=== PATIENT | male | born 1965 | race Caucasian/White ===

== ENCOUNTER 2016-07-31 15:30 | Emergency (ER) | payer BC ==
[2016-07-31] MEDS ORDERED: EPINEPHrine 1:1000 1 MG/ML SDV IM ONE ×2 (15:32→19:04)
[2016-07-31] MEDS ORDERED: methylPREDNISolone Acetate 80 MG/ML SDV ONE (15:36)
[2016-07-31] MEDS ORDERED: diphenhydrAMINE 50 MG/ML SDV IM ONE (15:40)
[2016-07-31] MEDS ORDERED: methylPREDNISolone Acetate 80 MG/ML SDV IM ONE (15:45)
--- NOTE | 2016-07-31 15:48 | EDM.PDOC ---
ED HPI GENERAL MEDICAL PROBLEM - General Chief Complaint: Allergic Reaction Stated Complaint: RASH Time Seen by Provider: 07/31/16 15:40 Source of Information: Reports: Patient History Limitations: Reports: No Limitations - History of Present Illness INITIAL COMMENTS - FREE TEXT/NARRATIVE: Came in to the ER complaining of rash, itching and burning in throat with a tightness in throat. No wheezing. Broke out n rash about [id number] today. Did take oral Benadryl at 1445 at home. Notes that feet are itching and feel swollen and rash is just starting now. Has rash over most of chest area, some on back and in groin. Rash is slightly raised and hives under breast area. States that his chest crouch like he has heartburn. Doesn't feel SOB at this time. States has been eating strawberry/ rhubarb crisp every day since Friday and that is the only thing different. Usually has no problems with allergies or reactions to anything. No other food or meds out of the ordinary. 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 (see below) (Benadryl) Throat Pain Score (Numeric/FACES): 6 - Related Data Allergies Allergy/AdvReac Type Severity Reaction Status Date / Time iodine Allergy Hives Verified 07/31/16 15:48 Home Meds: Home Meds Chlorthalidone [Chlorthalidone] 25 mg PO DAILY 07/31/16 [History] Levothyroxine Sodium [Levothyroxine Sodium] 175 mcg PO DAILY 07/31/16 [History] Losartan [Cozaar] 100 mg PO DAILY 07/31/16 [History] Simvastatin [Simvastatin] 20 mg PO DAILY 07/31/16 [History] Venlafaxine HCl [Venlafaxine ER] 75 mg PO DAILY 07/31/16 [History] Past Medical History - Past Surgical History Head Surgeries/Procedures: Reports: Craniotomy Social & Family History - Tobacco Use Smoking Status *Q: Never Smoker - Living Situation & Occupation Living situation: Reports: , with Family ED ROS ALLERGIC REACTION - Review of Systems Review Of Systems: See Below Constitutional: Denies: Fever, Chills HEENT: Reports: No Symptoms Respiratory: Reports: Other (chest feels tight). Denies: Cough Cardiovascular: Reports: No Symptoms GI/Abdominal: Reports: Other (Burning in his chest up into throat- which relieved after getting epi.) Musculoskeletal: Reports: No Symptoms Skin: Reports: Pruritis, Rash (rash noted over anterior chest. Under arms bilaterally. up onto the neck.) Neurological: Denies: Headache, Numbness ED EXAM GENERAL NO PERIP PULSE - Physical Exam Exam: See Below Exam Limited By: No Limitations General Appearance: Alert, Mild Distress Ears: Normal External Exam, Normal Canal Nose: Normal Inspection Throat/Mouth: Normal Inspection, Normal Oropharynx, No Airway Compromise Head: Atraumatic, Normocephalic Neck: Normal Inspection, Supple, Non-Tender, Full Range of Motion Respiratory/Chest: Lungs Clear, Normal Breath Sounds, Chest Non-Tender, Other ( states the burning in his chest went completely away.) Cardiovascular: Normal Peripheral Pulses, Regular Rate, Rhythm, No Edema GI/Abdominal: Normal Bowel Sounds, Soft, Non-Tender, No Organomegaly Back Exam: Normal Inspection Extremities: Normal Inspection, Normal Range of Motion, No Pedal Edema Neurological: Alert, Oriented Skin Exam: Warm, Dry Course - Vital Signs Last Recorded V/S: Last Vital Signs Temp 97.6 F 07/31/16 19:05 Pulse 73 07/31/16 19:05 Resp 18 07/31/16 19:05 BP 132/73 07/31/16 19:42 Pulse Ox 96 07/31/16 19:05 - Orders/Labs/Meds Meds: Medications Discontinued Medications Generic Name Dose Route Start Last Admin Trade Name Freq PRN Reason Stop Dose Admin Al Hydroxide/Mg Hydroxide 30 0 ml 07/31/16 19:51 ml/ Lidocaine HCl 15 ml PO 07/31/16 19:52 ONETIME ONE Diphenhydramine HCl 50 mg 07/31/16 15:40 07/31/16 15:40 Benadryl IM 07/31/16 15:41 50 mg ONETIME ONE Administration Epinephrine HCl 0.3 mg 07/31/16 15:32 07/31/16 15:32 Adrenalin 1:1000 IM 07/31/16 15:33 0.3 mg ONETIME ONE Administration Epinephrine HCl 0.3 mg 07/31/16 19:04 07/31/16 19:08 Adrenalin 1:1000 IM 07/31/16 19:05 0.3 mg ONETIME ONE Administration Methylprednisolone Acetate Confirm 07/31/16 15:36 07/31/16 15:56 Depo-Medrol Administered 07/31/16 15:37 Not Given Dose 80 mg .ROUTE .STK-MED ONE Methylprednisolone Acetate 80 mg 07/31/16 15:45 07/31/16 15:45 Depo-Medrol IM 07/31/16 15:46 80 mg ONETIME ONE Administration Methylprednisolone Sodium Succinate 125 mg 07/31/16 19:05 07/31/16 19:12 Solu-Medrol IM 07/31/16 19:06 125 mg ONETIME ONE Administration - Re-Assessments/Exams Free Text/Narrative Re-Assessment/Exam: 07/31/16 16:43 REevaluation reveals that rash is now just a pale pink in places and no longer itches. All the burning in his throat and chest is completely relieved at this time. He states that he feels better. Will discharge to home and instructed to continue to take the benadryl and return if symptoms return. Departure - Departure Time of Disposition: 16:44 Disposition: Home, Self-Care 01 Condition: good Clinical Impression: Allergic reaction Qualifiers: Encounter type: initial encounter Qualified Code(s): T78.40XA - Allergy, unspecified, initial encounter - Discharge Information Instructions: Allergies Referrals: Matheus Rose PA-C [Primary Care Provider] - Forms: ED Department Discharge Additional Instructions: Continue using the Benadryl for the next 48 hours If you become short of breathe or tightness occurs in throat or chest then return to the ER immediately. Call if any questions or concerns noted. - Problem List & Annotations (1) Allergic reaction SNOMED Code(s): 264130395 Code(s): T78.40XA - ALLERGY, UNSPECIFIED, INITIAL ENCOUNTER Status: Acute Priority: High Qualifiers: Encounter type: initial encounter Qualified Code(s): T78.40XA - Allergy, unspecified, initial encounter - Problem List Review Problem List Initiated/Reviewed/Updated: Yes
[2016-07-31] MEDS ORDERED: methylPREDNISolone Sodium Succinate 125 MG/2 ML SDV IM ONE (19:05)
[2016-07-31 19:42] VITALS: BP 132/73
[2016-07-31] MEDS ORDERED: Alum Hydrox/Mag Hydrox/Simeth 30 ML, Lidocaine 2% 15 ML PO ONE ×2 (19:51)
--- NOTE | 2016-08-01 06:51 | PN ---
DATE: 07/31/2016 S: Mr. Pittman had been in the emergency room earlier this day, but did come back as an outpatient at about 1705 hours as his hives had returned, the burning in his chest and tightness in his throat had also returned. He was given a dose of epinephrine and also a dose of 125 mg Solu-Medrol. When I did see him, he states the rash was lightening up again as it had been bright red and it is now more of a light pink. The itching had stopped or had decreased in most areas. He still had a burning tightness in his chest that had not been completely resolved at this point, so I did do an EKG just to make sure that it was not cardiac related and that was normal. He states at this point that his throat was less tight and scratchy and that he was feeling much better, but he did still have a burning in his chest. He was then given a GI cocktail and this completely disappeared. By 2014, he was pretty much back to his baseline except he could have a very light rash which is very light pink. It was pretty much on his chest, abdomen and arms. O: HEENT: During his stay, oral mucosa was pink and moist. There was no redness. It was not inflamed. NECK: Supple. There is no lymphadenopathy. LUNGS: Clear throughout. I do not hear any wheezing. No rhonchi. HEART: S1, S2. He had no chest wall tenderness. SKIN: He did have a rash that was much like the one that was in the ER earlier that was now very light pink on the above areas. Because he has significantly improved, we are going to discharge him again. He is to continue to take his Benadryl at home as he was instructed earlier and then follow up with any new concerns. He and his both voiced understanding. ASSESSMENT: ALLERGIC REACTION TO UNKNOWN SUBSTANCE. MELYSSA/BRY /[id number]
== END 2016-07-31 16:50 | disposition home or self-care (01) ==
LOC: CC.ED 15:30
DX: T78.40XA Allergy, unspecified, initial encounter (principal); R21 Rash and other nonspecific skin eruption; Z79.899 Other long term (current) drug therapy; Z98.890 Other specified postprocedural states; Z91.041 Radiographic dye allergy status
CPT/HCPCS: 93005; 96372; 99284; A9270; J0171; J1040; J1200; J2930

== ENCOUNTER 2016-09-22 22:24 | Observation (INO) | payer BC ==
[2016-09-22] MEDS ORDERED: Dexamethasone 4 MG/ML SDV IM ONE (22:27)
[2016-09-22] MEDS ORDERED: EPINEPHrine 1 MG/ML SDV ONE (22:29)
[2016-09-22] MEDS ORDERED: Sodium Chloride 0.9% 100 ML ONE ×2 (22:32→22:41)
[2016-09-22] MEDS ORDERED: Sodium Chloride 0.9% 1,000 ML ONE (22:32)
[2016-09-22] MEDS ORDERED: diphenhydrAMINE 50 MG/ML SDV ONE (22:40)
[2016-09-22] MEDS ORDERED: hydrOXYzine HCl 25 MG Tab ONE (23:07)
[2016-09-22] MEDS ORDERED: methylPREDNISolone Sodium Succinate 125 MG/2 ML SDV IVPUSH ONE (23:34)
[2016-09-22] MEDS ORDERED: methylPREDNISolone Sodium Succinate 125 MG/2 ML SDV IVPUSH SCH (23:45)
[2016-09-22] MEDS ORDERED: EPINEPHrine 1 MG in Dextrose 5% in Water 100 ML IV SCH ×2 (23:45)
[2016-09-22] MEDS ORDERED: Sodium Chloride 0.9% 1,000 ML IV ONE (23:54)
[2016-09-22] MEDS ORDERED: diphenhydrAMINE 50 MG/ML SDV IVPUSH ONE (23:57)
[2016-09-22] MEDS ORDERED: hydrOXYzine HCl 25 MG Tab PO ONE (23:58)
[2016-09-23] MEDS ORDERED: Sodium Chloride 0.9% 100 ML IV SCH (00:15)
[2016-09-23] MEDS ORDERED: methylPREDNISolone Sodium Succinate 125 MG/2 ML SDV IVPUSH ONE (00:51)
[2016-09-23] MEDS ORDERED: Sodium Chloride 0.9% 1,000 ML IV SCH (01:00)
--- NOTE | 2016-09-23 01:21 | EDM.PDOC ---
ED HPI GENERAL MEDICAL PROBLEM - General Chief Complaint: General Stated Complaint: itchy hands Time Seen by Provider: 09/22/16 22:29 Source of Information: Reports: Patient History Limitations: Reports: No Limitations - History of Present Illness INITIAL COMMENTS - FREE TEXT/NARRATIVE: Ate some crab legs about 2 hours ago and started itching. Now his throat feels like it is closing up his tongue is getting swollen and he has turned beet red. 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: 50 MG ORAL BENADRYL TAKEN AT HOME - Related Data Allergies Allergy/AdvReac Type Severity Reaction Status Date / Time iodine Allergy Hives Verified 09/22/16 22:29 rhubarb Allergy Hives Verified 09/22/16 22:30 shellfish derived Allergy Hives Verified 09/22/16 22:29 strawberry Allergy Hives Verified 09/22/16 22:30 Home Meds: Home Meds Chlorthalidone [Chlorthalidone] 25 mg PO DAILY 07/31/16 [History] Levothyroxine Sodium [Levothyroxine Sodium] 175 mcg PO DAILY 07/31/16 [History] Losartan [Cozaar] 100 mg PO DAILY 07/31/16 [History] Simvastatin [Simvastatin] 20 mg PO DAILY 07/31/16 [History] Venlafaxine HCl [Venlafaxine ER] 75 mg PO DAILY 07/31/16 [History] Past Medical History HEENT History: Reports: Hard of Hearing Cardiovascular History: Reports: High Cholesterol, Hypertension Musculoskeletal History: Reports: Arthritis Neurological History: Reports: Cerebral Aneurysms Psychiatric History: Reports: Depression Endocrine/Metabolic History: Reports: Hypothyroidism Dermatologic History: Reports: Other (See Below) Other Dermatologic History: ANAPHALAXIS - Infectious Disease History Infectious Disease History: Reports: Shingles - Past Surgical History Head Surgeries/Procedures: Reports: Craniotomy Cardiovascular Surgical History: Reports: Other (See Below) Other Cardiovascular Surgeries/Procedures: ANGIOGRAM Male Surgical History: Reports: Vasectomy, Other (See Below) Other Male Surgeries/Procedures: BREAST TISSUE REMOVED IN LEFT BREAST Endocrine Surgical History: Reports: Other (See Below) Other Endocrine Surgeries/Procedures: PARTIAL THYROIDECTOMY Neurological Surgical History: Reports: Other (See Below) Other Neurological Surgeries/Procedures: ANEURYSM REPAIR Musculoskeletal Surgical History: Reports: Shoulder Surgery, Other (See Below) Other Musculoskeletal Surgeries/Procedures:: KNEE SURGERIES Social & Family History - Tobacco Use Smoking Status *Q: Never Smoker Second Hand Smoke Exposure: No - Caffeine Use Caffeine Use: Reports: Soda - Recreational Drug Use Recreational Drug Use: No - Living Situation & Occupation Living situation: Reports: , with Family ED ROS GENERAL - Review of Systems Review Of Systems: ROS reveals no pertinent complaints other than HPI. ED EXAM, GENERAL - Physical Exam Exam: See Below Free Text/Narrative:: When i responded to the ER the patient was in significant distress, he was bright red, HR wa 124, BP was 188/115, he was beginning to have trouble breathing due to swelling in the throat, and he was covered with hives. General Appearance: Severe Distress Throat/Mouth: No Airway Compromise Respiratory/Chest: Wheezing Skin Exam: Erythema, Increased Warmth, Rash Course - Vital Signs Last Recorded V/S: Last Vital Signs Temp 99.2 F 09/23/16 00:19 Pulse 78 09/23/16 00:19 Resp 20 09/23/16 00:19 BP 136/75 09/23/16 00:19 Pulse Ox 94 L 09/23/16 00:19 - Orders/Labs/Meds Orders: Active Orders 24 hr Category Date Time Status EPINEPHrine [Adrenalin 1:1000] 1 mg Med 09/22/16 23:45 Active Dextrose 5% in Water 100 ml IV TITRATE Sodium Chloride 0.9% [Normal Saline] 1,000 ml Med 09/22/16 23:54 Active IV .BOLUS Sodium Chloride 0.9% [Normal Saline] 100 ml Med 09/23/16 00:15 Active IV ASDIRECTED Medication Orders Sodium Chloride (Normal Saline) 1,000 mls @ 100 mls/hr IV .BOLUS ONE Stop: 09/23/16 09:53 Last Admin: 09/23/16 00:55 Dose: 100 mls/hr Epinephrine HCl 1 mg/ Dextrose (/Water) 101 mls @ 71.61 mls/hr IV TITRATE JAMIA; 0.1 MCG/KG/MIN PRN Reason: Protocol Sodium Chloride (Normal Saline) 100 mls @ 100 mls/hr IV ASDIRECTED JAMIA Sodium Chloride (Normal Saline) 1,000 mls @ 125 mls/hr IV ASDIRECTED JAMIA Meds: Medications Generic Name Dose Route Start Last Admin Trade Name Freq PRN Reason Stop Dose Admin Sodium Chloride 1,000 mls @ 100 mls/hr 09/22/16 23:54 09/23/16 00:55 Normal Saline IV 09/23/16 09:53 100 mls/hr .BOLUS ONE Administration Epinephrine HCl 1 mg/ Dextrose 101 mls @ 71.61 mls/hr 09/22/16 23:45 /Water IV TITRATE JAMIA Protocol 0.1 MCG/KG/MIN Sodium Chloride 100 mls @ 100 mls/hr 09/23/16 00:15 Normal Saline IV ASDIRECTED JAMIA Sodium Chloride 1,000 mls @ 125 mls/hr 09/23/16 01:00 Normal Saline IV ASDIRECTED JAMIA Discontinued Medications Generic Name Dose Route Start Last Admin Trade Name Freq PRN Reason Stop Dose Admin Dexamethasone 8 mg 09/22/16 22:27 09/22/16 22:33 Dexamethasone IM 09/22/16 22:28 8 mg ONETIME ONE Administration Diphenhydramine HCl Confirm 09/22/16 22:40 09/22/16 23:59 Benadryl Administered 09/22/16 22:41 Not Given Dose 50 mg .ROUTE .STK-MED ONE Diphenhydramine HCl 25 mg 09/22/16 23:57 09/23/16 00:55 Benadryl IVPUSH 09/22/16 23:58 25 mg ONETIME ONE Administration Epinephrine HCl Confirm 09/22/16 22:29 09/22/16 23:59 Adrenalin 1:1000 Administered 09/22/16 22:30 Not Given Dose 1 mg .ROUTE .STK-MED ONE Hydroxyzine HCl Confirm 09/22/16 23:07 09/22/16 23:59 Atarax Administered 09/22/16 23:08 Not Given Dose 50 mg .ROUTE .STK-MED ONE Hydroxyzine HCl 50 mg 09/22/16 23:58 09/23/16 00:55 Atarax PO 09/22/16 23:59 50 mg ONETIME ONE Administration Sodium Chloride Confirm 09/22/16 22:32 09/22/16 23:59 Normal Saline Administered 09/22/16 22:33 Not Given Dose 100 mls @ as directed .ROUTE .STK-MED ONE Sodium Chloride Confirm 09/22/16 22:32 09/22/16 23:59 Normal Saline Administered 09/22/16 22:33 Not Given Dose 1,000 mls @ as directed .ROUTE .STK-MED ONE Sodium Chloride Confirm 09/22/16 22:41 09/23/16 00:00 Normal Saline Administered 09/22/16 22:42 Not Given Dose 100 mls @ as directed .ROUTE .STK-MED ONE Methylprednisolone Sodium Succinate 125 mg 09/22/16 23:45 Solu-Medrol IVPUSH Q24H JAMIA Methylprednisolone Sodium Succinate 125 mg 09/22/16 23:34 09/23/16 00:54 Solu-Medrol IVPUSH 09/22/16 23:35 125 mg STAT ONE Administration Methylprednisolone Sodium Succinate 125 mg 09/23/16 00:51 09/23/16 00:54 Solu-Medrol IVPUSH 09/23/16 00:52 125 mg STAT ONE Administration Departure - Departure Time of Disposition: 01:19 (Will obs overnight do to severity of the allergic reaction. I feel this would have turned into anaphylaxis given much more time.) Disposition: Refer to Observation Condition: Fair Clinical Impression: Allergic reaction Qualifiers: Encounter type: initial encounter Qualified Code(s): T78.40XA - Allergy, unspecified, initial encounter - Discharge Information - My Orders Last 24 Hours: My Active Orders 09/22/16 23:45 EPINEPHrine [Adrenalin 1:1000] 1 mg Dextrose 5% in Water 100 ml IV TITRATE 09/22/16 23:54 Sodium Chloride 0.9% [Normal Saline] 1,000 ml IV .BOLUS 09/23/16 00:15 Sodium Chloride 0.9% [Normal Saline] 100 ml IV ASDIRECTED - Assessment/Plan Last 24 Hours: My Active Orders 09/22/16 23:45 EPINEPHrine [Adrenalin 1:1000] 1 mg Dextrose 5% in Water 100 ml IV TITRATE 09/22/16 23:54 Sodium Chloride 0.9% [Normal Saline] 1,000 ml IV .BOLUS 09/23/16 00:15 Sodium Chloride 0.9% [Normal Saline] 100 ml IV ASDIRECTED
[2016-09-23] MEDS: diphenhydrAMINE 25 MG Cap PO SCH ×2 (03:40→07:34)
--- NOTE | 2016-09-23 06:49 | PCM.PN ---
- General Info Date of Service: 09/23/16 Admission Dx/Problem (Free Text): Looks and feels good this morning, has not had any more itching or SOB in several hours. Will D/C home with hydroxyzine and epi pens today. Functional Status: Reports: Pain Controlled - Review of Systems General: Reports: No Symptoms HEENT: Reports: No Symptoms Pulmonary: Reports: No Symptoms Cardiovascular: Reports: No Symptoms Musculoskeletal: Reports: No Symptoms Skin: Reports: No Symptoms Psychiatric: Reports: No Symptoms - Patient Data Vitals - most recent: Last Vital Signs Temp 96.5 F 09/23/16 05:05 Pulse 74 09/23/16 05:05 Resp 18 09/23/16 05:05 BP 143/98 H 09/23/16 05:05 Pulse Ox 98 09/23/16 05:05 Weight - most recent: 260 lb Med Orders - Current: Current Medications Diphenhydramine HCl (Benadryl) 50 mg PO Q4H JAMIA Last Admin: 09/23/16 03:40 Dose: 50 mg Sodium Chloride (Normal Saline) 1,000 mls @ 100 mls/hr IV .BOLUS ONE Stop: 09/23/16 09:53 Last Admin: 09/23/16 00:55 Dose: 100 mls/hr Epinephrine HCl 1 mg/ Dextrose (/Water) 101 mls @ 71.61 mls/hr IV TITRATE JAMIA; 0.1 MCG/KG/MIN PRN Reason: Protocol Last Admin: 09/23/16 01:25 Dose: 0.01 mcg/kg/min, 10 mls/hr Sodium Chloride (Normal Saline) 100 mls @ 100 mls/hr IV ASDIRECTED JAMIA Sodium Chloride (Normal Saline) 1,000 mls @ 125 mls/hr IV ASDIRECTED JAMIA Last Admin: 09/23/16 01:25 Dose: 125 mls/hr Discontinued Medications Dexamethasone (Dexamethasone) 8 mg IM ONETIME ONE Stop: 09/22/16 22:28 Last Admin: 09/22/16 22:33 Dose: 8 mg Diphenhydramine HCl (Benadryl) Confirm Administered Dose 50 mg .ROUTE .STK-MED ONE Stop: 09/22/16 22:41 Last Admin: 09/22/16 23:59 Dose: Not Given Diphenhydramine HCl (Benadryl) 25 mg IVPUSH ONETIME ONE Stop: 09/22/16 23:58 Last Admin: 09/23/16 00:55 Dose: 25 mg Epinephrine HCl (Adrenalin 1:1000) Confirm Administered Dose 1 mg .ROUTE .STK- MED ONE Stop: 09/22/16 22:30 Last Admin: 09/22/16 23:59 Dose: Not Given Hydroxyzine HCl (Atarax) Confirm Administered Dose 50 mg .ROUTE .STK-MED ONE Stop: 09/22/16 23:08 Last Admin: 09/22/16 23:59 Dose: Not Given Hydroxyzine HCl (Atarax) 50 mg PO ONETIME ONE Stop: 09/22/16 23:59 Last Admin: 09/23/16 00:55 Dose: 50 mg Sodium Chloride (Normal Saline) Confirm Administered Dose 100 mls @ as directed .ROUTE .STK-MED ONE Stop: 09/22/16 22:33 Last Admin: 09/22/16 23:59 Dose: Not Given Sodium Chloride (Normal Saline) Confirm Administered Dose 1,000 mls @ as directed .ROUTE .STK-MED ONE Stop: 09/22/16 22:33 Last Admin: 09/22/16 23:59 Dose: Not Given Sodium Chloride (Normal Saline) Confirm Administered Dose 100 mls @ as directed .ROUTE .STK-MED ONE Stop: 09/22/16 22:42 Last Admin: 09/23/16 00:00 Dose: Not Given Methylprednisolone Sodium Succinate (Solu-Medrol) 125 mg IVPUSH Q24H JAIMA Methylprednisolone Sodium Succinate (Solu-Medrol) 125 mg IVPUSH STAT ONE Stop: 09/22/16 23:35 Last Admin: 09/23/16 00:54 Dose: 125 mg Methylprednisolone Sodium Succinate (Solu-Medrol) 125 mg IVPUSH STAT ONE Stop: 09/23/16 00:52 Last Admin: 09/23/16 00:54 Dose: 125 mg - Problem List & Annotations (1) Allergic reaction SNOMED Code(s): 472080689 Code(s): T78.40XA - ALLERGY, UNSPECIFIED, INITIAL ENCOUNTER Status: Acute Priority: High Current Visit: Yes - Problem List Review Problem List Initiated/Reviewed/Updated: Yes - My Orders Last 24 Hours: My Active Orders 09/23/16 03:30 diphenhydrAMINE [Benadryl] 50 mg PO Q4H
--- NOTE | 2016-09-23 06:55 | PCM.DCSUM1 ---
Discharge Summary - Hospital Course Free Text/Narrative:: Discharge home this moning in good condition with prescriptions for hydroxyzine and EPI pens. HPI Initial Comments: Presented to ER last night around 11:00 with a severe allergic reaction to crab legs. Patient was beet red, SOB, had tongue swelling airway obstruction, hypertension, and tachycardia. Brief History: Patient was treated with IV fluids IV epi, IV benadryl, and corticosteroids. Was placed in observation over night for continued monitoring and has done well with no further complications noted. - Discharge Data Discharge Date: 09/23/16 Discharge Disposition: Home, Self-Care 01 Condition: Good - Discharge Diagnosis/Problem(s) (1) Allergic reaction SNOMED Code(s): 192883401 ICD Code: T78.40XA - ALLERGY, UNSPECIFIED, INITIAL ENCOUNTER Status: Acute Priority: High Current Visit: Yes - Discharge Plan Home Medications: Home Meds Chlorthalidone [Chlorthalidone] 25 mg PO DAILY 07/31/16 [History] Levothyroxine Sodium [Levothyroxine Sodium] 175 mcg PO DAILY 07/31/16 [History] Losartan [Cozaar] 100 mg PO DAILY 07/31/16 [History] Simvastatin [Simvastatin] 20 mg PO DAILY 07/31/16 [History] Venlafaxine HCl [Venlafaxine ER] 75 mg PO DAILY 07/31/16 [History] Aspirin 81 mg PO BRK 09/23/16 [History] Pantoprazole Sodium [Pantoprazole Sodium] 40 mg PO DAILY 09/23/16 [History] Forms: ED Department Discharge Referrals: Matheus Rose, RM [Primary Care Provider] - - Discharge Summary/Plan Comment DC Time >30 min.: No Discharge Summary/Plan Comment: Will D/C home in good condition with instruction to take Benadryl every 6 hours around the clock for the next 24 hours. - Patient Data Vitals - Most Recent: Last Vital Signs Temp 96.5 F 09/23/16 05:05 Pulse 74 09/23/16 05:05 Resp 18 09/23/16 05:05 BP 143/98 H 09/23/16 05:05 Pulse Ox 98 09/23/16 05:05 Weight - Most Recent: 260 lb Med Orders - Current: Current Medications Diphenhydramine HCl (Benadryl) 50 mg PO Q4H JAMIA Last Admin: 09/23/16 03:40 Dose: 50 mg Sodium Chloride (Normal Saline) 1,000 mls @ 100 mls/hr IV .BOLUS ONE Stop: 09/23/16 09:53 Last Admin: 09/23/16 00:55 Dose: 100 mls/hr Epinephrine HCl 1 mg/ Dextrose (/Water) 101 mls @ 71.61 mls/hr IV TITRATE JAMIA; 0.1 MCG/KG/MIN PRN Reason: Protocol Last Admin: 09/23/16 01:25 Dose: 0.01 mcg/kg/min, 10 mls/hr Sodium Chloride (Normal Saline) 100 mls @ 100 mls/hr IV ASDIRECTED JAMIA Sodium Chloride (Normal Saline) 1,000 mls @ 125 mls/hr IV ASDIRECTED JAMIA Last Admin: 09/23/16 01:25 Dose: 125 mls/hr Discontinued Medications Dexamethasone (Dexamethasone) 8 mg IM ONETIME ONE Stop: 09/22/16 22:28 Last Admin: 09/22/16 22:33 Dose: 8 mg Diphenhydramine HCl (Benadryl) Confirm Administered Dose 50 mg .ROUTE .STK-MED ONE Stop: 09/22/16 22:41 Last Admin: 09/22/16 23:59 Dose: Not Given Diphenhydramine HCl (Benadryl) 25 mg IVPUSH ONETIME ONE Stop: 09/22/16 23:58 Last Admin: 09/23/16 00:55 Dose: 25 mg Epinephrine HCl (Adrenalin 1:1000) Confirm Administered Dose 1 mg .ROUTE .STK- MED ONE Stop: 09/22/16 22:30 Last Admin: 09/22/16 23:59 Dose: Not Given Hydroxyzine HCl (Atarax) Confirm Administered Dose 50 mg .ROUTE .STK-MED ONE Stop: 09/22/16 23:08 Last Admin: 09/22/16 23:59 Dose: Not Given Hydroxyzine HCl (Atarax) 50 mg PO ONETIME ONE Stop: 09/22/16 23:59 Last Admin: 09/23/16 00:55 Dose: 50 mg Sodium Chloride (Normal Saline) Confirm Administered Dose 100 mls @ as directed .ROUTE .STK-MED ONE Stop: 09/22/16 22:33 Last Admin: 09/22/16 23:59 Dose: Not Given Sodium Chloride (Normal Saline) Confirm Administered Dose 1,000 mls @ as directed .ROUTE .STK-MED ONE Stop: 09/22/16 22:33 Last Admin: 09/22/16 23:59 Dose: Not Given Sodium Chloride (Normal Saline) Confirm Administered Dose 100 mls @ as directed .ROUTE .STK-MED ONE Stop: 09/22/16 22:42 Last Admin: 09/23/16 00:00 Dose: Not Given Methylprednisolone Sodium Succinate (Solu-Medrol) 125 mg IVPUSH Q24H JAMIA Methylprednisolone Sodium Succinate (Solu-Medrol) 125 mg IVPUSH STAT ONE Stop: 09/22/16 23:35 Last Admin: 09/23/16 00:54 Dose: 125 mg Methylprednisolone Sodium Succinate (Solu-Medrol) 125 mg IVPUSH STAT ONE Stop: 09/23/16 00:52 Last Admin: 09/23/16 00:54 Dose: 125 mg *Q Meaningful Use (DIS) - VTE *Q VTE Criteria *Q: - Stroke *Q Stroke Criteria *Q: - AMI *Q AMI Criteria *Q:
[2016-09-23] MEDS ORDERED: hydrOXYzine HCl 25 MG Tab PO ONE (07:01)
[2016-09-23 07:58] VITALS: BP 147/97
== END 2016-09-23 07:50 | disposition home or self-care (01) ==
LOC: CC.ED 22:24 → UNDOADMOB 09-23 00:41 → CC.MS 09-23 00:41
PROVIDERS: ADMIT Nurse Practitioner Family; ATTEND Family Medicine
DX: T78.1XXA Other adverse food reactions, not elsewhere classified, initial encounter (principal); I10 Essential (primary) hypertension; E78.00 Pure hypercholesterolemia, unspecified; E03.9 Hypothyroidism, unspecified; F32.9 Major depressive disorder, single episode, unspecified; Z79.82 Long term (current) use of aspirin; Z79.899 Other long term (current) drug therapy; Z88.8 Allergy status to other drugs, medicaments and biological substances; Z91.013 Allergy to seafood; Z91.018 Allergy to other foods; Z98.890 Other specified postprocedural states; Z90.89 Acquired absence of other organs
CPT/HCPCS: 96365; 96366; 96368; 96375; 96376; 99285; A9270; G0378; J0171; J1100; J1200; J2930; J7030; J7060; 96367; 96372

== ENCOUNTER 2017-04-09 20:58 | Emergency (ER) | payer BC ==
[2017-04-09] MEDS: EPINEPHrine 1 MG/ML SDV SUBCUT ONE (21:03)
[2017-04-09] MEDS: diphenhydrAMINE 50 MG/ML SDV IVPUSH ONE (21:04)
[2017-04-09] MEDS: methylPREDNISolone Sodium Succinate 125 MG/2 ML SDV IVPUSH ONE (21:06)
[2017-04-09] MEDS: hydrOXYzine HCl 25 MG Tab PO ONE (21:24)
--- NOTE | 2017-04-09 21:28 | EDM.PDOC ---
ED HPI GENERAL MEDICAL PROBLEM - General Chief Complaint: Allergic Reaction Stated Complaint: allergic reaction Time Seen by Provider: 04/09/17 21:00 Source of Information: Reports: Patient History Limitations: Reports: No Limitations - History of Present Illness INITIAL COMMENTS - FREE TEXT/NARRATIVE: Patient presents tonight with concerns of an allergic reaction. He states his hands are itchy and his tongue is starting to feel thick. He states this is the 3rd reaction of this type he has had in a year. Does have an epi pen at home but did not use it. He relates the last episode was very significant, he turned beet red, had trouble breathing and hives and was worried that this reaction would lead to the same. He had his Chlorthalidone about 3 hours prior to eating seafood tonight and questions if this is triggering the reactions. He did have allergy testing after the second reaction but they did not find that he was allergic to anything. Denies any wheezing or shortness of breath right now. Onset: Sudden Duration: Hour(s): Location: Reports: Generalized Severity: Moderate Associated Symptoms: Reports: Other (pruritis). Denies: Confusion, Chest Pain, Cough, Fever/Chills, Loss of Appetite, Nausea/Vomiting, Rash, Shortness of Breath, Weakness - Related Data Allergies Allergy/AdvReac Type Severity Reaction Status Date / Time iodine Allergy Hives Verified 04/09/17 21:35 rhubarb Allergy Hives Verified 04/09/17 21:35 shellfish derived Allergy Hives Verified 04/09/17 21:35 strawberry Allergy Hives Verified 04/09/17 21:35 Home Meds: Home Meds Chlorthalidone 25 mg PO DAILY 07/31/16 [History] Levothyroxine Sodium 175 mcg PO DAILY 07/31/16 [History] Losartan [Cozaar] 100 mg PO DAILY 07/31/16 [History] Simvastatin 20 mg PO DAILY 07/31/16 [History] Venlafaxine HCl [Venlafaxine ER] 75 mg PO DAILY 07/31/16 [History] Aspirin 81 mg PO BRK 09/23/16 [History] Past Medical History HEENT History: Reports: Hard of Hearing Cardiovascular History: Reports: High Cholesterol, Hypertension Musculoskeletal History: Reports: Arthritis Neurological History: Reports: Cerebral Aneurysms Psychiatric History: Reports: Depression Endocrine/Metabolic History: Reports: Hypothyroidism Dermatologic History: Reports: Other (See Below) Other Dermatologic History: ANAPHALAXIS - Infectious Disease History Infectious Disease History: Reports: Shingles - Past Surgical History Head Surgeries/Procedures: Reports: Craniotomy Cardiovascular Surgical History: Reports: Other (See Below) Other Cardiovascular Surgeries/Procedures: ANGIOGRAM Male Surgical History: Reports: Vasectomy, Other (See Below) Other Male Surgeries/Procedures: BREAST TISSUE REMOVED IN LEFT BREAST Endocrine Surgical History: Reports: Other (See Below) Other Endocrine Surgeries/Procedures: PARTIAL THYROIDECTOMY Neurological Surgical History: Reports: Other (See Below) Other Neurological Surgeries/Procedures: ANEURYSM REPAIR Musculoskeletal Surgical History: Reports: Shoulder Surgery, Other (See Below) Other Musculoskeletal Surgeries/Procedures:: KNEE SURGERIES Social & Family History - Tobacco Use Smoking Status *Q: Never Smoker Second Hand Smoke Exposure: No - Caffeine Use Caffeine Use: Reports: Soda - Recreational Drug Use Recreational Drug Use: No - Living Situation & Occupation Living situation: Reports: , with Family ED ROS ALLERGIC REACTION - Review of Systems Review Of Systems: See Below Constitutional: Denies: Fever, Chills, Malaise, Weakness, Decreased Appetite HEENT: Reports: Other (tongue feels thick) Respiratory: Reports: No Symptoms. Denies: Shortness of Breath Cardiovascular: Denies: Chest Pain, Edema, Lightheadedness Endocrine: Denies: Fatigue GI/Abdominal: Reports: No Symptoms : Reports: No Symptoms Musculoskeletal: Reports: No Symptoms Skin: Reports: Pruritis, Urticaria Neurological: Reports: No Symptoms Psychiatric: Reports: Anxiety ED EXAM GENERAL NO PERIP PULSE - Physical Exam Exam: See Below Exam Limited By: No Limitations General Appearance: Alert, WD/WN, Anxious Ears: Normal External Exam, Normal TMs Nose: Normal Inspection, Normal Mucosa, No Blood Throat/Mouth: Normal Inspection, Normal Oropharynx Head: Normocephalic Neck: Normal Inspection, Supple, Non-Tender Respiratory/Chest: No Respiratory Distress, Lungs Clear, Normal Breath Sounds Cardiovascular: Normal Peripheral Pulses, Regular Rate, Rhythm GI/Abdominal: Normal Bowel Sounds Neurological: Alert, Oriented Skin Exam: Erythema (to hands), Other (redness and mild swelling noted around eyes, hive noted to right ear/lobe region) Course - Vital Signs Last Recorded V/S: Last Vital Signs Temp 97.5 F 04/09/17 21:00 Pulse 84 04/09/17 21:00 Resp 20 04/09/17 21:00 BP 189/128 H 04/09/17 21:00 Pulse Ox 92 L 04/09/17 21:00 - Orders/Labs/Meds Meds: Medications Discontinued Medications Generic Name Dose Route Start Last Admin Trade Name Eva PRN Reason Stop Dose Admin Diphenhydramine HCl 50 mg 04/09/17 21:15 04/09/17 21:04 Benadryl IVPUSH 04/09/17 21:16 50 mg ONETIME ONE Administration Epinephrine HCl 0.3 mg 04/09/17 21:15 04/09/17 21:03 Adrenalin SUBCUT 04/09/17 21:16 0.3 mg ONETIME ONE Administration Hydroxyzine HCl 50 mg 04/09/17 21:15 04/09/17 21:24 Atarax PO 04/09/17 21:16 50 mg ONETIME ONE Administration Methylprednisolone Sodium Succinate 125 mg 04/09/17 21:16 04/09/17 21:06 Solu-Medrol IVPUSH 04/09/17 21:17 125 mg NOW ONE Administration - Re-Assessments/Exams Free Text/Narrative Re-Assessment/Exam: 04/09/17 21:00 Patient immediately given epi, benadryl and solu medrol after saline lock placed. 2130- feeling some relief at this point. Sats remain good. Resting comfortably 04/09/17 22:19 Feeling better. Does have hives on his arms, less itching now though. No respiratory concerns. Departure - Departure Time of Disposition: 22:20 Disposition: Home, Self-Care 01 Condition: Good Clinical Impression: Allergic reaction - Discharge Information Forms: ED Department Discharge Additional Instructions: 1. Rest 2. Benadryl 50 mg every 6 hours for total 4 doses 3. Prednisone 40 mg daily for 4 days 4. Consider taking Zyrtec 10 mg daily 5. Return if symptoms worsen or have concerns.
[2017-04-10 02:48] VITALS: BP 149/102
== END 2017-04-09 22:35 | disposition home or self-care (01) ==
LOC: CC.ED 20:58
DX: T78.40XA Allergy, unspecified, initial encounter (principal); I10 Essential (primary) hypertension; E78.00 Pure hypercholesterolemia, unspecified; E03.9 Hypothyroidism, unspecified; F32.9 Major depressive disorder, single episode, unspecified; Z79.899 Other long term (current) drug therapy; Z91.013 Allergy to seafood; Z88.8 Allergy status to other drugs, medicaments and biological substances; Z91.018 Allergy to other foods
CPT/HCPCS: 96372; 96374; 96375; 99283; A9270-GY; J0171; J1200; J2930

== ENCOUNTER → 2017-06-13 | Day surgery (SDC) | payer BC ==
[~2017-06-13] MED LIST: Lactated Ringers 1,000 ML IV SCH; Meperidine PF 25 MG/ML Syringe IV ONE; Meperidine PF 25 MG/ML Syringe ONE; Meperidine PF 50 MG/ML Syringe IV ONE; Meperidine PF 50 MG/ML Syringe ONE; Midazolam 1 MG/ML 2 ML SDV IV ONE; Midazolam 1 MG/ML 2 ML SDV ONE
[2017-06-13 13:38] VITALS: BP 151/87
--- NOTE | 2017-06-16 08:13 | OR ---
DATE OF OPERATION: 06/13/2017 PREOPERATIVE DIAGNOSIS: SCREENING COLONOSCOPY. POSTOPERATIVE DIAGNOSIS: SCREENING COLONOSCOPY. SURGEON: Tyson Blount MD PROCEDURE: FULL-LENGTH COLONOSCOPY WITH BIOPSIES X3, SNARE POLYPECTOMY X2. ANESTHESIA: Conscious sedation. COMPLICATIONS: None. SPECIMEN: 1. Transverse colon biopsy x1. 2. Sigmoid and rectosigmoid biopsies x2. 3. Tubular adenomas x2. See report. Each approximately 0.5 cm in size. FINDINGS: 1. Full-length colonoscopy. 2. [id number] sigmoid diverticulosis. 3. Tubular adenomas x2. 4. Left-sided colitis, likely peridiverticular. RECOMMENDATIONS: Routine colonoscopy followup in three years due to tubular adenoma removal. Close pathology follow up with Matheus Rose PA-C. INDICATIONS: Mr. Pittman was in for a physical. He is due for a colonoscopy given his age. Occasionally, he apparently gets a little abdominal bloating and diarrhea. Matheus Rose PA-C, recommended colonoscopy. DESCRIPTION OF PROCEDURE: The patient was prepped and draped, placed in the left lateral decubitus position. A lubricated Olympus colonoscope was inserted and easily passed toward the cecum. We were only able to get the scope about 2[address] the ascending colon. We were able to get a look down at the cecal pouch but could not get in it regardless of maneuvering or patient positioning and elected to stop at that point. The bowel prep was fine. Upon withdrawal, ascending colon appeared benign. In the mid transverse colon, the patient had a small little area of colitis, very nonspecific and mild. We did do a biopsy of it. The rest of the transverse and descending colon was unremarkable. In the sigmoid colon, the patient did have scattered diverticulosis mild to moderate in severity. There was some peridiverticular inflammation in the mid to distal sigmoid up to the rectosigmoid junction, consistent with some acute colitis. Two biopsies of those areas were taken at the most affected area. The patient did have two typical tubular adenomas, one around 25 cm and one in the proximal rectal vault. Both were removed with snares and suctioned into polyp traps 1 and 2 respectively. The rest of the rectal vault appeared benign. Retroflexion scope in the rectum was not accomplished due to the shallowness of his vault, but upon withdrawal and direct exam, no obvious abnormalities were seen. Air was suctioned from the colon and the scope was removed without complication. The patient was stable in recovery room. SUSHILA/BRY /[id number]
== END ==
LOC: CC.SDS 11:56
PROVIDERS: ATTEND Family Medicine
DX: Z12.11 Encounter for screening for malignant neoplasm of colon (principal); D12.8 Benign neoplasm of rectum; K63.5 Polyp of colon; K52.9 Noninfective gastroenteritis and colitis, unspecified; K57.30 Diverticulosis of large intestine without perforation or abscess without bleeding; I10 Essential (primary) hypertension; E66.9 Obesity, unspecified; Z68.38 Body mass index [BMI] 38.0-38.9, adult; I25.10 Atherosclerotic heart disease of native coronary artery without angina pectoris; K21.9 Gastro-esophageal reflux disease without esophagitis; E03.9 Hypothyroidism, unspecified; E78.5 Hyperlipidemia, unspecified; Z87.891 Personal history of nicotine dependence; Z79.82 Long term (current) use of aspirin
CPT/HCPCS: J2175; J2250

== ENCOUNTER 2018-05-03 15:43 | Emergency (ER) | payer BC ==
[2018-05-03] MEDS ORDERED: Aspirin 81 MG Tab.Chew PO ONE (15:54)
[2018-05-03] MEDS ORDERED: Aspirin 325 MG Tab PO ONE (15:54)
[2018-05-03] MEDS ORDERED: Sodium Chloride 0.9% 10 ML Syringe FLUSH PRN (15:54)
[2018-05-03] MEDS ORDERED: Nitroglycerin 0.4 MG Tab.SL SL PRN (15:54)
--- NOTE | 2018-05-03 16:08 | EDM.PDOC ---
ED HPI GENERAL MEDICAL PROBLEM - General Chief Complaint: Chest Pain Stated Complaint: CHEST PAIN Time Seen by Provider: 05/03/18 15:50 Source of Information: Reports: Patient History Limitations: Reports: No Limitations - History of Present Illness INITIAL COMMENTS - FREE TEXT/NARRATIVE: Patient is a morbidly obese 52 year old male with a history of CAD with angioplasty 5-6 years ago who was taking asa 325 daily until about a month ago when he ran out and did not get more....it was about a month ago when he began having intermittent chest discomfort over the last 24 hours it has become more intense and is a deep pressure with shortness of breath today and some radiation of the pain to his left elbow which he states is tingling. He rates his pain a 7/10 at the time of my exam. Onset: Gradual Onset Date: 04/05/18 Location: Reports: Chest Quality: Reports: Pressure Severity: Moderate Improves with: Reports: None Worsens with: Reports: None Associated Symptoms: Reports: Chest Pain, Shortness of Breath Chest Pain Score (Numeric/FACES): 7 - Related Data Allergies Allergy/AdvReac Type Severity Reaction Status Date / Time iodine Allergy Hives Verified 05/03/18 16:33 rhubarb Allergy Hives Verified 05/03/18 16:33 shellfish derived Allergy Hives Verified 05/03/18 16:33 strawberry Allergy Hives Verified 05/03/18 16:33 Home Meds: Home Meds Chlorthalidone 25 mg PO DAILY 07/31/16 [History] Levothyroxine Sodium 175 mcg PO DAILY 07/31/16 [History] Losartan [Cozaar] 100 mg PO DAILY 07/31/16 [History] Simvastatin 20 mg PO DAILY 07/31/16 [History] Venlafaxine HCl [Venlafaxine ER] 75 mg PO DAILY 07/31/16 [History] Aspirin 81 mg PO BRK 09/23/16 [History] EPINEPHrine [Epipen 2-Raymon] 0.3 ml IM ASDIRECTED PRN 06/12/17 [History] Sildenafil [Viagra] 100 mg PO ASDIRECTED PRN 06/12/17 [History] Past Medical History HEENT History: Reports: Hard of Hearing Cardiovascular History: Reports: High Cholesterol, Hypertension Respiratory History: Reports: Sleep Apnea Gastrointestinal History: Reports: Diverticulosis Musculoskeletal History: Reports: Arthritis Neurological History: Reports: Cerebral Aneurysms Psychiatric History: Reports: Depression Endocrine/Metabolic History: Reports: Hypothyroidism Dermatologic History: Reports: Other (See Below) Other Dermatologic History: ANAPHALAXIS - Infectious Disease History Infectious Disease History: Reports: Shingles - Past Surgical History Head Surgeries/Procedures: Reports: Craniotomy Cardiovascular Surgical History: Reports: Other (See Below) Other Cardiovascular Surgeries/Procedures: ANGIOGRAM Male Surgical History: Reports: Vasectomy, Other (See Below) Other Male Surgeries/Procedures: BREAST TISSUE REMOVED IN LEFT BREAST Endocrine Surgical History: Reports: Other (See Below) Other Endocrine Surgeries/Procedures: PARTIAL THYROIDECTOMY Neurological Surgical History: Reports: Other (See Below) Other Neurological Surgeries/Procedures: ANEURYSM REPAIR Musculoskeletal Surgical History: Reports: Shoulder Surgery, Other (See Below) Other Musculoskeletal Surgeries/Procedures:: KNEE SURGERIES - History Comment History Comment: reviewed Social & Family History - Caffeine Use Caffeine Use: Reports: Soda - Living Situation & Occupation Living situation: Reports: (reviewed SH and FH and agree with nursing documentation.), with Family ED ROS GENERAL - Review of Systems Review Of Systems: See Below Constitutional: Reports: No Symptoms HEENT: Reports: No Symptoms Respiratory: Reports: No Symptoms Cardiovascular: Reports: Chest Pain, Other (history of angioplasty.) GI/Abdominal: Reports: No Symptoms Musculoskeletal: Reports: No Symptoms Skin: Reports: No Symptoms Neurological: Reports: No Symptoms Psychiatric: Reports: No Symptoms ED EXAM, GENERAL - Physical Exam Exam: See Below Exam Limited By: No Limitations General Appearance: Alert, WD/WN, Anxious, Mild Distress Ears: Normal External Exam, Hearing Grossly Normal Nose: Normal Inspection, Normal Mucosa, No Blood Throat/Mouth: Normal Inspection, Normal Lips, Normal Teeth, Normal Oropharynx, Normal Voice, No Airway Compromise Head: Atraumatic, Normocephalic Neck: Normal Inspection, Supple, Non-Tender, Full Range of Motion Respiratory/Chest: No Respiratory Distress, Lungs Clear, Normal Breath Sounds, No Accessory Muscle Use, Chest Non-Tender Cardiovascular: Normal Peripheral Pulses, Regular Rate, Rhythm, No Edema, No JVD , No Murmur, Other (non tender to palapation.) GI/Abdominal: Normal Bowel Sounds, Soft, Non-Tender, No Distention, Pelvis Stable Back Exam: Normal Inspection, Full Range of Motion Extremities: Normal Inspection, Normal Range of Motion, Non-Tender, No Pedal Edema, Normal Capillary Refill Neurological: Alert, Oriented, CN II-XII Intact, Normal Cognition, Normal Gait, Normal Reflexes, No Motor/Sensory Deficits Psychiatric: Normal Affect, Normal Mood Skin Exam: Warm, Dry, Intact, Normal Color, No Rash Lymphatic: No Adenopathy EKG INTERPRETATION EKG Date: 05/03/18 Time: 15:48 Rhythm: NSR Rate (Beats/Min): 81 [place]: Normal P-Wave: Present QRS: Normal ST-T: Other (same as previous EKG from 07/31/2016) Comparison: No Change Course - Vital Signs Last Recorded V/S: Last Vital Signs Temp 97.4 F 05/03/18 17:50 Pulse 74 05/03/18 17:50 Resp 18 05/03/18 17:50 BP 153/91 H 05/03/18 18:20 Pulse Ox 95 05/03/18 17:50 - Orders/Labs/Meds Orders: Active Orders 24 hr Category Date Time Status Cardiac Monitoring [RC] . DIRECTED Care 05/03/18 15:54 Active EKG Documentation Completion [RC] STAT Care 05/03/18 15:54 Active Peripheral IV Care [RC] . DIRECTED Care 05/03/18 15:56 Active Chest 2V [CR] Stat Exams 05/03/18 15:55 Taken Nitroglycerin [Nitrostat] Med 05/03/18 15:54 Active 0.4 mg SL Q5M PRN Sodium Chloride 0.9% [Saline Flush] Med 05/03/18 15:54 Active 10 ml FLUSH ASDIRECTED PRN Assertion [AST] Urgent Oth 05/03/18 15:54 Ordered Peripheral IV Insertion Adult [OM.PC] Stat Oth 05/03/18 15:54 Ordered EKG 12 Lead [EK] Stat Ther 05/03/18 15:54 Stop Req Medication Orders Nitroglycerin (Nitrostat) 0.4 mg SL Q5M PRN PRN Reason: Chest Pain Stop: 05/04/18 15:55 Last Admin: 05/03/18 16:02 Dose: 0.4 mg Sodium Chloride (Saline Flush) 10 ml FLUSH ASDIRECTED PRN PRN Reason: Keep Vein Open Labs: Laboratory Tests 05/03/18 05/03/18 05/03/18 Range/Units 16:15 16:15 16:15 WBC 7.5 (5.0-10.0) 10^3/uL RBC 5.12 (4.50-6.00) 10^6/uL Hgb 16.3 (14.0-18.0) g/dL Hct 46.3 (40.0-54.0) % MCV 90.4 (82.0-94.0) fL MCH 31.8 (27.0-32.0) pg MCHC 35.2 (33.0-38.0) g/dL RDW Coeff of David 13.7 (11.0-15.0) % Plt Count 225 (150-400) 10^3/uL Neut % (Auto) 68.4 (35-85) % Lymph % (Auto) 19.2 (10-55) % [place] % (Auto) 10.7 (0-16) % Eos % (Auto) 1.3 (0-5) % Baso % (Auto) 0.4 (0-3) % Neut # (Auto) 5.12 (1.80-7.00) 10^3/uL Lymph # (Auto) 1.44 (1.00-4.80) 10^3/uL [place] # (Auto) 0.80 (0.00-0.80) 10^3/uL Eos # (Auto) 0.10 (0.00-0.45) 10^3/uL Baso # (Auto) 0.03 10^3/uL PT 10.1 (9.7-12.3) SEC INR 0.97 (0.92-1.18) D-Dimer, Quantitative < 0.19 (0.00-0.50) Sodium 142 (136-145) mEq/L Potassium 3.4 L (3.5-5.0) mEq/L Chloride 104 (98-106) mEq/L Carbon Dioxide 29 (21-32) mmol/L BUN 17 (7-18) mg/dL Creatinine 1.1 (0.7-1.3) mg/dL Est Cr Clr Drug Dosing TNP Estimated GFR (MDRD) > 60 (>=60) mL/min Glucose 137 H (75-99) mg/dL Calcium 9.1 (8.4-10.1) mg/dL Total Bilirubin 0.2 (0.0-1.0) mg/dL AST 38 H (15-37) U/L ALT 83 H (12-78) U/L Alkaline Phosphatase 110 (46-116) U/L Troponin I < 0.017 (0.00-0.06) ng/mL NT-Pro-B Natriuret Pep 16 (0-1000) pg/mL Total Protein 6.8 (6.4-8.2) g/dL Albumin 3.3 L (3.4-5.0) g/dL 05/03/18 Range/Units 18:00 WBC (5.0-10.0) 10^3/uL RBC (4.50-6.00) 10^6/uL Hgb (14.0-18.0) g/dL Hct (40.0-54.0) % MCV (82.0-94.0) fL MCH (27.0-32.0) pg MCHC (33.0-38.0) g/dL RDW Coeff of David (11.0-15.0) % Plt Count (150-400) 10^3/uL Neut % (Auto) (35-85) % Lymph % (Auto) (10-55) % [place] % (Auto) (0-16) % Eos % (Auto) (0-5) % Baso % (Auto) (0-3) % Neut # (Auto) (1.80-7.00) 10^3/uL Lymph # (Auto) (1.00-4.80) 10^3/uL [place] # (Auto) (0.00-0.80) 10^3/uL Eos # (Auto) (0.00-0.45) 10^3/uL Baso # (Auto) 10^3/uL PT (9.7-12.3) SEC INR (0.92-1.18) D-Dimer, Quantitative (0.00-0.50) Sodium (136-145) mEq/L Potassium (3.5-5.0) mEq/L Chloride (98-106) mEq/L Carbon Dioxide (21-32) mmol/L BUN (7-18) mg/dL Creatinine (0.7-1.3) mg/dL Est Cr Clr Drug Dosing Estimated GFR (MDRD) (>=60) mL/min Glucose (75-99) mg/dL Calcium (8.4-10.1) mg/dL Total Bilirubin (0.0-1.0) mg/dL AST (15-37) U/L ALT (12-78) U/L Alkaline Phosphatase (46-116) U/L Troponin I < 0.017 (0.00-0.06) ng/mL NT-Pro-B Natriuret Pep (0-1000) pg/mL Total Protein (6.4-8.2) g/dL Albumin (3.4-5.0) g/dL Meds: Medications Generic Name Dose Route Start Last Admin Trade Name Freq PRN Reason Stop Dose Admin Nitroglycerin 0.4 mg 05/03/18 15:54 05/03/18 16:02 Nitrostat SL 05/04/18 15:55 0.4 mg Q5M PRN Administration Chest Pain Sodium Chloride 10 ml 05/03/18 15:54 Saline Flush FLUSH ASDIRECTED PRN Keep Vein Open Discontinued Medications Generic Name Dose Route Start Last Admin Trade Name Freq PRN Reason Stop Dose Admin Aspirin 325 mg 05/03/18 15:54 05/03/18 16:13 Aspirin PO 05/03/18 15:55 Not Given ONETIME ONE Aspirin 324 mg 05/03/18 15:54 05/03/18 15:57 Aspirin PO 05/03/18 15:55 324 mg ONETIME ONE Administration Metoprolol Tartrate 50 mg 05/03/18 16:40 05/03/18 16:46 Lopressor PO 05/03/18 16:41 50 mg ONETIME ONE Administration Nitroglycerin 1 gm 05/03/18 16:10 05/03/18 16:19 Nitro-Bid 2% TOP 05/03/18 16:11 1 gm ONETIME ONE Administration - Re-Assessments/Exams Free Text/Narrative Re-Assessment/Exam: 05/03/18 16:13 patient was noted to have increase in BP he is unsure if he took his BP meds today. He was given Nitro spray- and had some flushing and burning in the throat. it was decided to place 1inch of nitro paste on at this time. Free Text/Narrative Re-Assessment/Exam: 05/03/18 18:54 Patient had repeat troponin and it was negative- and patient has no chest pain- at the time of re-exam. and note will be sent to [facility] for follow up tomorrow for stress test this week. patient was told to return if increased in pain or worsening symptoms. Departure - Departure Time of Disposition: 18:59 Disposition: Home, Self-Care 01 Condition: Good Clinical Impression: Chest pain in adult Referrals: Matheus Rose PA-C [Primary Care Provider] - Forms: ED Department Discharge Additional Instructions: Follow up with [facility]GL[facility] in the AM to schedule the Stress test. Return to the ER if worse -symptoms/ including increased Chest pain Take your Blood pressure medicine when you get home. - My Orders Last 24 Hours: My Active Orders 05/03/18 15:54 Cardiac Monitoring [RC] . DIRECTED EKG Documentation Completion [RC] STAT Nitroglycerin [Nitrostat] 0.4 mg SL Q5M PRN Sodium Chloride 0.9% [Saline Flush] 10 ml FLUSH ASDIRECTED PRN Assertion [AST] Urgent Peripheral IV Insertion Adult [OM.PC] Stat EKG 12 Lead [EK] Stat 05/03/18 15:55 Chest 2V [CR] Stat 05/03/18 15:56 Peripheral IV Care [RC] . DIRECTED - Assessment/Plan Last 24 Hours: My Active Orders 05/03/18 15:54 Cardiac Monitoring [RC] . DIRECTED EKG Documentation Completion [RC] STAT Nitroglycerin [Nitrostat] 0.4 mg SL Q5M PRN Sodium Chloride 0.9% [Saline Flush] 10 ml FLUSH ASDIRECTED PRN Assertion [AST] Urgent Peripheral IV Insertion Adult [OM.PC] Stat EKG 12 Lead [EK] Stat 05/03/18 15:55 Chest 2V [CR] Stat 05/03/18 15:56 Peripheral IV Care [RC] . DIRECTED
[2018-05-03] MEDS ORDERED: Nitroglycerin 2% Oint 1 GM UD Packet TOP ONE (16:10)
[2018-05-03 16:36] LABS: CHLORIDE,CL 104 mEq/L (98-106); SODIUM,NA 142 mEq/L (136-145)
[2018-05-03] MEDS ORDERED: Metoprolol Tartrate 50 MG Tab PO ONE (16:40)
[2018-05-03 18:51] VITALS: BP 153/91
== END 2018-05-03 19:40 | disposition home or self-care (01) ==
LOC: CC.ED 15:43
DX: R07.9 Chest pain, unspecified (principal); E78.00 Pure hypercholesterolemia, unspecified; I10 Essential (primary) hypertension; F32.9 Major depressive disorder, single episode, unspecified; E03.9 Hypothyroidism, unspecified; Z91.09 Other allergy status, other than to drugs and biological substances; Z79.899 Other long term (current) drug therapy
CPT/HCPCS: 36415; 71046; 80053; 83880; 84484; 85025; 85379; 85610; 93005; 99285-25; A9270-GY

== ENCOUNTER 2018-10-17 14:08 | Emergency (ER) | payer BC ==
[2018-10-17] MEDS ORDERED: Aspirin 81 MG Tab.Chew PO ONE (14:10)
[2018-10-17] MEDS ORDERED: Sodium Chloride 0.9% 10 ML Syringe FLUSH PRN (14:10)
[2018-10-17] MEDS ORDERED: Nitroglycerin 2% Oint 1 GM UD Packet TOP ONE (14:11)
--- NOTE | 2018-10-17 14:17 | EDM.PDOC ---
ED HPI GENERAL MEDICAL PROBLEM - General Chief Complaint: Chest Pain Stated Complaint: chest pain Time Seen by Provider: 10/17/18 14:08 Source of Information: Reports: Patient, Family History Limitations: Reports: No Limitations - History of Present Illness INITIAL COMMENTS - FREE TEXT/NARRATIVE: patient to the emergency department complaining of midsternal chest his left shoulder shortness of breath and nausea that started just prior to coming to the hospital. the patient advises this past week he did have an outpatient stress test, he advises the stress test showed some blockages. however, he's not sure exactly on the exact reading. The patient does have a history of hypertension, the patient denies any abdominal pain he denies any unusual pain or stiffness denies any ear, nose, throat . The patient is a chronic smoker he smokes less than a pack alcohol daily Onset: Today, Sudden Duration: Minutes: Location: Reports: Chest Quality: Reports: Pressure Severity: Severe Improves with: Reports: None Worsens with: Reports: None Context: Reports: Other (at rest) Associated Symptoms: Reports: Chest Pain, Nausea/Vomiting, Shortness of Breath. Denies: Cough, Diaphoresis, Weakness Treatments HYPERION DEVELOPER: Reports: Other (see below) (none) - Related Data Allergies Allergy/AdvReac Type Severity Reaction Status Date / Time iodine Allergy Hives Verified 10/17/18 14:09 rhubarb Allergy Hives Verified 10/17/18 14:09 shellfish derived Allergy Hives Verified 10/17/18 14:09 strawberry Allergy Hives Verified 10/17/18 14:09 Home Meds: Home Meds Chlorthalidone 25 mg PO DAILY 07/31/16 [History] Levothyroxine Sodium 175 mcg PO DAILY 07/31/16 [History] Losartan [Cozaar] 100 mg PO DAILY 07/31/16 [History] Simvastatin 20 mg PO DAILY 07/31/16 [History] Aspirin 81 mg PO BRK 09/23/16 [History] EPINEPHrine [Epipen 2-Raymon] 0.3 ml IM ASDIRECTED PRN 06/12/17 [History] Pantoprazole Sodium 40 mg PO DAILY 05/07/18 [History] Testosterone Cypionate 1 ml IM ASDIRECTED 05/07/18 [History] Tadalafil 5 mg PO DAILY 10/15/18 [History] amLODIPine Besylate [Amlodipine Besylate] 5 mg PO DAILY 10/15/18 [History] buPROPion HCl [Zyban] 150 mg PO DAILY 10/15/18 [History] Past Medical History HEENT History: Reports: Hard of Hearing Cardiovascular History: Reports: High Cholesterol, Hypertension Respiratory History: Reports: Sleep Apnea Gastrointestinal History: Reports: Diverticulosis Musculoskeletal History: Reports: Arthritis Neurological History: Reports: Cerebral Aneurysms Psychiatric History: Reports: Depression Endocrine/Metabolic History: Reports: Hypothyroidism Dermatologic History: Reports: Other (See Below) Other Dermatologic History: ANAPHALAXIS - Infectious Disease History Infectious Disease History: Reports: Shingles - Past Surgical History Head Surgeries/Procedures: Reports: Craniotomy Cardiovascular Surgical History: Reports: Other (See Below) Other Cardiovascular Surgeries/Procedures: ANGIOGRAM Male Surgical History: Reports: Vasectomy, Other (See Below) Other Male Surgeries/Procedures: BREAST TISSUE REMOVED IN LEFT BREAST Endocrine Surgical History: Reports: Other (See Below) Other Endocrine Surgeries/Procedures: PARTIAL THYROIDECTOMY Neurological Surgical History: Reports: Other (See Below) Other Neurological Surgeries/Procedures: ANEURYSM REPAIR Musculoskeletal Surgical History: Reports: Shoulder Surgery, Other (See Below) Other Musculoskeletal Surgeries/Procedures:: KNEE SURGERIES - History Comment History Comment: reviewed Social & Family History - Family History Cardiac: Reports: Hypertension - Caffeine Use Caffeine Use: Reports: Soda - Living Situation & Occupation Living situation: Reports: (reviewed SH and FH and agree with nursing documentation.), with Family ED ROS GENERAL - Review of Systems Review Of Systems: See Below Constitutional: Reports: No Symptoms. Denies: Fever, Chills HEENT: Reports: No Symptoms Respiratory: Reports: Shortness of Breath Cardiovascular: Reports: Chest Pain Endocrine: Reports: No Symptoms GI/Abdominal: Denies: Abdominal Pain, Nausea, Vomiting : Reports: No Symptoms Musculoskeletal: Reports: No Symptoms. Denies: Neck Pain, Back Pain Skin: Reports: No Symptoms Neurological: Reports: No Symptoms Psychiatric: Reports: No Symptoms ED EXAM, GENERAL - Physical Exam Exam: See Below Exam Limited By: No Limitations General Appearance: Alert, WD/WN, Anxious Ears: Normal External Exam Nose: Normal Inspection Throat/Mouth: Normal Inspection, Normal Lips Head: Atraumatic, Normocephalic Neck: Normal Inspection, Supple, Non-Tender, Full Range of Motion Respiratory/Chest: No Respiratory Distress, Lungs Clear, Normal Breath Sounds, No Accessory Muscle Use, Chest Non-Tender Cardiovascular: Normal Peripheral Pulses, Regular Rate, Rhythm, No Edema, No Murmur Peripheral Pulses: 2+: Radial (L), Radial (R) GI/Abdominal: Normal Bowel Sounds, Soft, Non-Tender, No Distention Back Exam: Normal Inspection, Full Range of Motion Extremities: Normal Inspection, Normal Range of Motion, Non-Tender, No Pedal Edema, Normal Capillary Refill Neurological: Alert, Oriented, Normal Cognition, Normal Gait, No Motor/Sensory Deficits Psychiatric: Normal Affect, Normal Mood Skin Exam: Warm, Dry, Intact, Normal Color EKG INTERPRETATION EKG Date: 10/17/18 Time: 13:58 Lockhart: Normal P-Wave: Present QRS: Normal ST-T: Normal EKG Interpretation Comments: twelve-lead EKG shows an underlying sinus rhythm with ventricular rate of 84 there is no acute injury or ischemic pattern note however there is nonspecific ST changes and poor R-wave progression Course - Vital Signs Text/Narrative:: on October 15, 2018 patient had a Cardiolite stress test at this facility which was read by Dr. Blount showing some mild ischemia in the proximal lateral wall. Last Recorded V/S: Last Vital Signs Temp 36.7 C 10/17/18 14:08 Pulse 85 10/17/18 15:04 Resp 17 10/17/18 15:04 BP 141/88 H 10/17/18 15:04 Pulse Ox 93 L 10/17/18 15:04 - Orders/Labs/Meds Orders: Active Orders 24 hr Category Date Time Status Peripheral IV Care [RC] . DIRECTED Care 10/17/18 14:10 Active Chest 2V [CR] Stat Exams 10/17/18 14:10 Taken Sodium Chloride 0.9% [Saline Flush] Med 10/17/18 14:10 Active 10 ml FLUSH ASDIRECTED PRN Peripheral IV Insertion Adult [OM.PC] Routine Oth 10/17/18 14:10 Ordered Medication Orders Sodium Chloride (Saline Flush) 10 ml FLUSH ASDIRECTED PRN PRN Reason: Keep Vein Open Labs: Laboratory Tests 10/17/18 10/17/18 Range/Units 14:10 14:10 WBC 5.1 (5.0-10.0) 10^3/uL RBC 5.43 (4.50-6.00) 10^6/uL Hgb 16.2 (14.0-18.0) g/dL Hct 47.4 (40.0-54.0) % MCV 87.3 (82.0-94.0) fL MCH 29.8 (27.0-32.0) pg MCHC 34.2 (33.0-38.0) g/dL RDW Coeff of David 13.3 (11.0-15.0) % Plt Count 266 (150-400) 10^3/uL Neut % (Auto) 64.2 (35-85) % Lymph % (Auto) 24.2 (10-55) % Hooker % (Auto) 9.8 (0-16) % Eos % (Auto) 1.4 (0-5) % Baso % (Auto) 0.4 (0-3) % Neut # (Auto) 3.27 (1.80-7.00) 10^3/uL Lymph # (Auto) 1.23 (1.00-4.80) 10^3/uL Hooker # (Auto) 0.50 (0.00-0.80) 10^3/uL Eos # (Auto) 0.07 (0.00-0.45) 10^3/uL Baso # (Auto) 0.02 10^3/uL Sodium 139 (136-145) mEq/L Potassium 3.5 (3.5-5.0) mEq/L Chloride 102 (98-106) mEq/L Carbon Dioxide 28 (21-32) mmol/L BUN 9 (7-18) mg/dL Creatinine 1.1 (0.7-1.3) mg/dL Est Cr Clr Drug Dosing TNP Estimated GFR (MDRD) > 60 (>=60) mL/min Glucose 140 H D (75-99) mg/dL Calcium 9.3 (8.4-10.1) mg/dL Total Bilirubin 0.4 (0.0-1.0) mg/dL AST 34 (15-37) U/L ALT 56 (12-78) U/L Alkaline Phosphatase 94 (46-116) U/L Troponin I < 0.017 (0.00-0.06) ng/mL Total Protein 7.2 (6.4-8.2) g/dL Albumin 3.7 (3.4-5.0) g/dL Meds: Medications Generic Name Dose Route Start Last Admin Trade Name Freq PRN Reason Stop Dose Admin Sodium Chloride 10 ml 10/17/18 14:10 Saline Flush FLUSH ASDIRECTED PRN Keep Vein Open Discontinued Medications Generic Name Dose Route Start Last Admin Trade Name Freq PRN Reason Stop Dose Admin Aspirin 324 mg 10/17/18 14:10 10/17/18 14:21 Aspirin PO 10/17/18 14:11 324 mg ONETIME ONE Administration Nitroglycerin 1 gm 10/17/18 14:11 10/17/18 14:22 Nitro-Bid 2% TOP 10/17/18 14:12 1 gm ONETIME ONE Administration - Radiology Interpretation Free Text/Narrative:: CXR neg, unchanged from previous Departure - Departure Time of Disposition: 15:19 Disposition: DC/Tfer to Acute Hospital 02 Reason for Transfer *Q: Other (eval and tx by cardiology not availible at [place] and possible PCI) Condition: Good Clinical Impression: Acute coronary syndrome Referrals: Matheus Rose PA-C [Primary Care Provider] - Forms: ED Department Discharge ED Communication - Conversation Summary Admitting Provider Agreed to Patient's Admission: Yes Summary Comment: 1445 I called and spoke with the transfer center at [facility] [place], she advised she would get the hospitalist and call me back. [id number] The hospitalist will call back. 1515 Dr. Robbins the hospitalist will accept the pt - Problem List & Annotations (1) Acute coronary syndrome SNOMED Code(s): 046929797 Code(s): I24.9 - ACUTE ISCHEMIC HEART DISEASE, UNSPECIFIED Status: Acute Priority: High Current Visit: Yes - Problem List Review Problem List Initiated/Reviewed/Updated: Yes - My Orders Last 24 Hours: My Active Orders 10/17/18 14:10 Peripheral IV Care [RC] . DIRECTED Chest 2V [CR] Stat Sodium Chloride 0.9% [Saline Flush] 10 ml FLUSH ASDIRECTED PRN Peripheral IV Insertion Adult [OM.PC] Routine - Assessment/Plan Last 24 Hours: My Active Orders 10/17/18 14:10 Peripheral IV Care [RC] . DIRECTED Chest 2V [CR] Stat Sodium Chloride 0.9% [Saline Flush] 10 ml FLUSH ASDIRECTED PRN Peripheral IV Insertion Adult [OM.PC] Routine Plan: the patient was evaluated in emergency department CBC and general chemistrie are essentially negative, troponin is normal chest x-rays negative EKG shows an underlying sinus rhythm with a ventricular rate of [address] changes, however, there is no acute injury or ischemia noted. The patient had a positive stress test on October 15, 2018. As this patient is having chest pain that was significantly reduced with nitroglycerin and a positive stress I suspect that he'll need to be transferred for evaluation and treatment by a reel man not available at [facility]. The risk of motor vehicle accident, worsening condition, and was explained to the patient with benefit of being seen and treated by reel man was explained to the patient and he agrees to be transferred. The pt will be sent by [facility] ambulance, see nursing notes for details of the transfer.
[2018-10-17 14:33] LABS: CHLORIDE,CL 102 mEq/L (98-106); SODIUM,NA 139 mEq/L (136-145)
[2018-10-17 16:15] VITALS: BP 148/84
== END 2018-10-17 16:00 ==
LOC: CC.ED 14:08
DX: I24.9 Acute ischemic heart disease, unspecified (principal); I10 Essential (primary) hypertension; E03.9 Hypothyroidism, unspecified; Z79.899 Other long term (current) drug therapy; Z79.82 Long term (current) use of aspirin; Z88.8 Allergy status to other drugs, medicaments and biological substances
CPT/HCPCS: 36415; 71046; 80053; 84484; 85025; 93005; 99285; A9270

== ENCOUNTER → 2018-11-06 | Day surgery (SDC) | payer BC ==
[~2018-11-06] MED LIST changes: -Meperidine PF 25 MG/ML Syringe IV ONE; -Meperidine PF 25 MG/ML Syringe ONE; -Meperidine PF 50 MG/ML Syringe IV ONE; -Meperidine PF 50 MG/ML Syringe ONE; -Midazolam 1 MG/ML 2 ML SDV IV ONE; -Midazolam 1 MG/ML 2 ML SDV ONE; +Propofol 200 MG/20 ML SDV IV ONE
[2018-11-06 11:34] VITALS: BP 157/86; PULSE 70
--- NOTE | 2018-11-06 12:10 | OR ---
DATE OF OPERATION: 11/06/2018 PREOPERATIVE DIAGNOSIS: EPIGASTRIC PAIN. POSTOPERATIVE DIAGNOSIS: EPIGASTRIC PAIN. SURGEON: Tyson Blount MD PROCEDURE: ESOPHAGOGASTRODUODENOSCOPY WITH BIOPSIES X4, SURJIT. ANESTHESIA: MAC. COMPLICATIONS: None. SPECIMEN: 1. Antral biopsy x2. 2. Antral SURJIT. 3. Fundal polyp. 4. Distal esophageal biopsy x1. FINDINGS: 1. Full-length EGD. 2. Moderate active antral gastritis without erosion or ulceration. 3. Benign adenomatous fundal polyp. 4. Small hiatal hernia with spontaneous GERD and associated short-segment Moon esophagus. No acute inflammatory change, stricture, ulceration, etc. RECOMMENDATIONS: Ongoing medical followup with Harjinder Rose. INDICATIONS: The patient has had ongoing persistent epigastric and lower chest pain. Worked up initially for cardiac etiology. This was negative. Harjinder Rose sent him for diagnostic EGD. DESCRIPTION OF PROCEDURE: The patient was prepped and draped, placed in the left lateral decubitus position. A lubricated Olympus gastroscope was inserted over a bit, advanced to cricopharyngeus area, and easily intubated in the esophagus. The esophageal lining was benign in its entire course until its most distal portion. The patient appears to have bowel small hiatal hernia with significant spontaneous reflux. There is no distal esophagitis, stricturing, or ulceration, but there is what appears to be a few short-segment Moon's changes. Biopsy was taken of the affected area. The scope was advanced into the stomach through the pylorus and into the second portion of the duodenum. This and the duodenal bulb were benign. The scope was brought back into the stomach and retroflexed. The upper fundus and cardia appeared unremarkable. At the distal portion of the fundus, upon straightening, the patient had a small adenomatous polyp, removed in its entirety with forceps. The scope was advanced into the antrum, where patient has moderate acute gastritis. No ulceration or erosions were seen. Two biopsies were taken along with a CLOtest. Air was then suctioned and the scope removed without complication. SUSHILA/BRY /[id number]
== END ==
LOC: CC.SDS 09:39
PROVIDERS: ATTEND Family Medicine
DX: K31.7 Polyp of stomach and duodenum (principal); K22.70 Barrett's esophagus without dysplasia; K21.9 Gastro-esophageal reflux disease without esophagitis; K44.9 Diaphragmatic hernia without obstruction or gangrene; K29.70 Gastritis, unspecified, without bleeding; I25.10 Atherosclerotic heart disease of native coronary artery without angina pectoris; I10 Essential (primary) hypertension; E78.5 Hyperlipidemia, unspecified; E34.9 Endocrine disorder, unspecified; E03.9 Hypothyroidism, unspecified; F41.9 Anxiety disorder, unspecified; G47.33 Obstructive sleep apnea (adult) (pediatric); H91.93 Unspecified hearing loss, bilateral; Z91.013 Allergy to seafood; Z87.891 Personal history of nicotine dependence; Z79.82 Long term (current) use of aspirin; Z79.899 Other long term (current) drug therapy
CPT/HCPCS: 43239; 87081; J2704; J7120

== ENCOUNTER → 2020-05-19 | Day surgery (SDC) | payer BC ==
[~2020-05-19] MED LIST changes: +Ketamine 200 MG/20 ML MDV ONE; +Midazolam 1 MG/ML 2 ML SDV ONE; -Propofol 200 MG/20 ML SDV IV ONE; +Propofol 200 MG/20 ML SDV ONE; +fentaNYL 100 MCG/2 ML SDV ONE
[2020-05-19 10:57] VITALS: PULSE 71
[2020-05-19 11:33] VITALS: BP 145/68
--- NOTE | 2020-05-19 11:49 | OR ---
DATE OF OPERATION: 05/19/2020 PREOPERATIVE DIAGNOSIS: FOLLOWUP POLYPS. POSTOPERATIVE DIAGNOSIS: FOLLOWUP POLYPS. SURGEON: Tyson Blount MD PROCEDURE: FULL-LENGTH DIAGNOSTIC COLONOSCOPY. ANESTHESIA: MAC. COMPLICATIONS: None. SPECIMEN: None. FINDINGS: 1. Full-length colonoscopy. 2. Pandiverticulosis, moderate. RECOMMENDATIONS: Followup colonoscopy in 6 years. INDICATIONS: The patient had a prior colonoscopy with 2 larger tubular adenomas removed approximately 3 years ago. He is in for a routine followup. DESCRIPTION OF PROCEDURE: The patient was prepped and draped, placed in the left lateral decubitus position. A lubricated Olympus colonoscope was inserted and with ease advanced to the cecum. Direct visualization of the ileocecal valve and appendiceal orifice was accomplished. The bowel prep was marginal. There was a lot of stool, most of this could be suctioned. There were few areas that could not and certainly smaller lesions may have been missed in those sites. Upon withdrawal throughout the entire length of the colon, I could find no signs of any polyps, masses, ulceration, or bleeding sites. No vascular abnormalities or signs of colitis. The patient does have diverticular disease throughout the length of the colon, moderate in severity. The rectal vault appeared benign. Retroflexion showed no perianal lesions. Air was suctioned, scope removed without complication. SUSHILA/BRY /[id number]
== END ==
LOC: CC.SDS 09:27
PROVIDERS: ATTEND Family Medicine
DX: K57.30 Diverticulosis of large intestine without perforation or abscess without bleeding (principal); I25.10 Atherosclerotic heart disease of native coronary artery without angina pectoris; E78.5 Hyperlipidemia, unspecified; I10 Essential (primary) hypertension; E03.9 Hypothyroidism, unspecified; E29.1 Testicular hypofunction; G47.30 Sleep apnea, unspecified; Z91.013 Allergy to seafood; Z79.82 Long term (current) use of aspirin; Z79.899 Other long term (current) drug therapy; Z79.890 Hormone replacement therapy; Z87.891 Personal history of nicotine dependence; Z86.010 Personal history of colon polyps; Z98.890 Other specified postprocedural states
CPT/HCPCS: 00811; J2250; J2704; J3010; J7120

== ENCOUNTER 2020-06-27 13:02 | Observation (INO) | payer BC ==
[2020-06-27] MEDS ORDERED: Metoprolol Tartrate 5 MG/5 ML SDV IVPUSH ONE (13:32)
[2020-06-27 13:38] LABS: CHLORIDE,CL 99 mEq/L (98-106); SODIUM,NA 140 mEq/L (136-145)
[2020-06-27] MEDS ORDERED: Aspirin 81 MG Tab.Chew PO ONE (13:53)
[2020-06-27] MEDS ORDERED: cloNIDine 0.1 MG Tab PO STA (14:24)
[2020-06-27] MEDS ORDERED: Sodium Chloride 0.9% 10 ML Syringe FLUSH PRN (17:22)
--- NOTE | 2020-06-27 18:07 | EDM.PDOC ---
ED HPI GENERAL MEDICAL PROBLEM - General Chief Complaint: General Stated Complaint: MID CHEST PAIN Time Seen by Provider: 06/27/20 13:30 Source of Information: Reports: Patient History Limitations: Reports: No Limitations - History of Present Illness INITIAL COMMENTS - FREE TEXT/NARRATIVE: Ilia is a 54 yo male who presents to the ED via private vehicle with complaints of not feeling well. States he was at work this afternoon and started to feel a burning in his chest. States it felt like heart burn but wouldn't go away. Started to get really sweaty and decided to go home. Admits at home symptoms didn't improve so he presented to the ED. - Related Data Allergies Allergy/AdvReac Type Severity Reaction Status Date / Time iodine Allergy Hives Verified 05/19/20 09:38 rhubarb Allergy Hives Verified 05/19/20 09:38 shellfish derived Allergy Hives Verified 05/19/20 09:38 strawberry Allergy Hives Verified 05/19/20 09:38 Home Meds: Home Meds Chlorthalidone 25 mg PO DAILY 07/31/16 [History] Losartan [Cozaar] 100 mg PO DAILY 07/31/16 [History] Aspirin 81 mg PO DAILY 09/23/16 [History] EPINEPHrine [Epipen 2-Raymon] 0.3 ml IM ASDIRECTED PRN 06/12/17 [History] Pantoprazole Sodium 40 mg PO DAILY 05/07/18 [History] Testosterone Cypionate 1 ml IM Q14D 05/07/18 [History] amLODIPine Besylate [Amlodipine Besylate] 5 mg PO DAILY 10/15/18 [History] buPROPion HCl [Zyban] 150 mg PO DAILY 10/15/18 [History] Furosemide 40 mg PO DAILY 05/18/20 [History] Levothyroxine Sodium 88 mcg PO DAILY 05/18/20 [History] Levothyroxine Sodium [Synthroid] 100 mcg PO DAILY 05/18/20 [History] tadalafiL [Tadalafil] 10 mg PO ASDIRECTED PRN 05/18/20 [History] Past Medical History HEENT History: Reports: Hard of Hearing Cardiovascular History: Reports: High Cholesterol, Hypertension Respiratory History: Reports: Sleep Apnea Gastrointestinal History: Reports: Diverticulosis Musculoskeletal History: Reports: Arthritis Neurological History: Reports: Cerebral Aneurysms Psychiatric History: Reports: Depression Endocrine/Metabolic History: Reports: Hypothyroidism Dermatologic History: Reports: Other (See Below) Other Dermatologic History: ANAPHALAXIS - Infectious Disease History Infectious Disease History: Reports: Shingles - Past Surgical History Head Surgeries/Procedures: Reports: Craniotomy Cardiovascular Surgical History: Reports: Other (See Below) Other Cardiovascular Surgeries/Procedures: ANGIOGRAM Male Surgical History: Reports: Vasectomy, Other (See Below) Other Male Surgeries/Procedures: BREAST TISSUE REMOVED IN LEFT BREAST Endocrine Surgical History: Reports: Other (See Below) Other Endocrine Surgeries/Procedures: PARTIAL THYROIDECTOMY Neurological Surgical History: Reports: Other (See Below) Other Neurological Surgeries/Procedures: ANEURYSM REPAIR Musculoskeletal Surgical History: Reports: Shoulder Surgery, Other (See Below) Other Musculoskeletal Surgeries/Procedures:: KNEE SURGERIES - History Comment History Comment: reviewed Social & Family History - Family History Cardiac: Reports: Hypertension - Tobacco Use Tobacco Use Status *Q: Light Tobacco User Years of Tobacco use: 20 Packs/Tins Daily: 0.1 - Caffeine Use Caffeine Use: Reports: Coffee - Recreational Drug Use Recreational Drug Use: No - Living Situation & Occupation Living situation: Reports: (reviewed SH and FH and agree with nursing documentation.), with Family ED ROS GENERAL - Review of Systems Review Of Systems: See Below Constitutional: Reports: Diaphoresis HEENT: Reports: No Symptoms Respiratory: Denies: Shortness of Breath, Wheezing, Pleuritic Chest Pain, Cough Cardiovascular: Reports: Chest Pain, Blood Pressure Problem. Denies: Lightheadedness, Palpitations GI/Abdominal: Denies: Abdominal Pain, Nausea, Vomiting : Reports: No Symptoms Musculoskeletal: Reports: No Symptoms Skin: Reports: No Symptoms Neurological: Reports: No Symptoms Psychiatric: Reports: No Symptoms ED EXAM, GENERAL - Physical Exam Exam: See Below Exam Limited By: No Limitations General Appearance: Alert, WD/WN, No Apparent Distress Ears: Normal External Exam, Normal Canal, Normal TMs Nose: Normal Inspection, Normal Mucosa, No Blood Throat/Mouth: Normal Inspection, Normal Lips, Normal Teeth, Normal Gums, Normal Oropharynx, Normal Voice, No Airway Compromise Head: Atraumatic, Normocephalic Neck: Normal Inspection, Supple Respiratory/Chest: No Respiratory Distress, Lungs Clear, Normal Breath Sounds, No Accessory Muscle Use Cardiovascular: Regular Rate, Rhythm, No Murmur Peripheral Pulses: 2+: Dorsalis Pedis (L), Dorsalis Pedis (R) GI/Abdominal: Normal Bowel Sounds, Soft, Non-Tender, No Organomegaly, No Distention, No Mass, Other (No epigastric tenderness) Extremities: Normal Inspection, Pedal Edema (trace bilateral) Neurological: Alert, Oriented, Normal Cognition, No Motor/Sensory Deficits Psychiatric: Normal Affect, Normal Mood Skin Exam: Warm, Dry, Intact, Normal Color, No Rash #1 Interpretation EKG Date: 06/27/20 Time: 13:10 Rhythm: NSR Rate (Beats/Min): 64 Comparison: NA - No Prior EKG Course - Vital Signs Last Recorded V/S: Last Vital Signs Temp 96.2 F L 06/27/20 13:10 Pulse 63 06/27/20 14:18 Resp 20 06/27/20 14:18 BP 160/90 H 06/27/20 14:54 Pulse Ox 96 06/27/20 14:18 - Orders/Labs/Meds Orders: Active Orders 24 hr Category Date Time Status Telemetry Monitoring [Cardiac Monitoring] [RC] . Care 06/27/20 13:08 Active DIRECTED Chest 2V [CR] Stat Exams 06/27/20 13:08 Taken Medication Orders Aspirin (Aspirin 81 Mg Tab.Chew) 81 mg PO DAILY JAMIA Bupropion HCl (Bupropion 150 Mg Tab.Sr Pt Own) 150 mg PO DAILY JAMIA Chlorthalidone (Chlorthalidone 25 Mg Tab Pt Own) 25 mg PO DAILY JAMIA Enoxaparin Sodium (Enoxaparin 40 Mg/0.4 Ml Syringe) 40 mg SUBCUT Q24H JAMIA Furosemide (Furosemide 40 Mg Tab Pt Own*8) 40 mg PO DAILY JAMIA Levothyroxine Sodium (Levothyroxine 88 Mcg Tab) 88 mcg PO DAILY JAMIA Levothyroxine Sodium (Levothyroxine 100 Mcg Tab) 100 mcg PO DAILY JAMIA Losartan Potassium (Losartan 100 Mg Tab) 100 mg PO DAILY JAMIA Non-Formulary Medication (Amlodipine Besylate [Amlodipine Besylate]) 5 mg PO DAILY JAMIA Pantoprazole Sodium (Take Home: Pantoprazole 40 Mg Tab.Cr, 1 Tab Pack) packet PO DAILY [facility] Sodium Chloride (Sodium Chloride 0.9% 10 Ml Syringe) 10 ml FLUSH ASDIRECTED PRN PRN Reason: Keep Vein Open Labs: Laboratory Tests 04/27/21 04/27/21 04/27/21 Range/Units 13:19 13:19 13:19 WBC 6.6 (5.0-10.0) 10^3/uL RBC 5.35 (4.50-6.00) 10^6/uL Hgb 16.2 (14.0-18.0) g/dL Hct 47.0 (40.0-54.0) % MCV 87.9 (82.0-94.0) fL MCH 30.3 (27.0-32.0) pg MCHC 34.5 (33.0-38.0) g/dL RDW Coeff of David 14.6 (11.0-15.0) % Plt Count 210 (150-400) 10^3/uL Neut % (Auto) 58.2 (35-85) % Lymph % (Auto) 23.9 (10-55) % [place] % (Auto) 15.6 (0-16) % Eos % (Auto) 1.7 (0-5) % Baso % (Auto) 0.6 (0-3) % Neut # (Auto) 3.84 (1.80-7.00) 10^3/uL Lymph # (Auto) 1.58 (1.00-4.80) 10^3/uL [place] # (Auto) 1.03 H (0.00-0.80) 10^3/uL Eos # (Auto) 0.11 (0.00-0.45) 10^3/uL Baso # (Auto) 0.04 10^3/uL PT 11.0 (9.7-12.3) SEC INR 1.01 (0.92-1.18) Sodium 140 (136-145) mEq/L Potassium 3.7 (3.5-5.0) mEq/L Chloride 99 (98-106) mEq/L Carbon Dioxide 32 (21-32) mmol/L BUN 12 (7-18) mg/dL Creatinine 1.3 (0.7-1.3) mg/dL Est Cr Clr Drug Dosing 74.27 mL/min Estimated GFR (MDRD) 58 L (>=60) mL/min Glucose 85 (75-99) mg/dL Calcium 8.9 (8.4-10.1) mg/dL Magnesium 2.0 (1.8-2.4) mg/dL Total Bilirubin 0.3 (0.0-1.0) mg/dL AST 27 (15-37) U/L ALT 61 (12-78) U/L Alkaline Phosphatase 105 (46-116) U/L Lactate Dehydrogenase 149 (100-190) U/L Creatine Kinase 259 H (35-232) U/L Troponin I < 0.017 (0.00-0.06) ng/mL Total Protein 7.2 (6.4-8.2) g/dL Albumin 3.4 (3.4-5.0) g/dL Lipase 177 (73-393) U/L Meds: Medications Generic Name Dose Route Start Last Admin Trade Name Freq PRN Reason Stop Dose Admin Aspirin 81 mg 06/28/20 08:00 Aspirin 81 Mg Tab.Chew PO DAILY JAMIA Bupropion HCl 150 mg 06/28/20 08:00 Bupropion 150 Mg Tab.Sr Pt Own PO DAILY JAMIA Chlorthalidone 25 mg 06/28/20 08:00 Chlorthalidone 25 Mg Tab Pt Own PO DAILY [facility] Enoxaparin Sodium 40 mg 06/27/20 17:22 Enoxaparin 40 Mg/0.4 Ml Syringe SUBCUT Q24H JAMIA Furosemide 40 mg 06/28/20 08:00 Furosemide 40 Mg Tab Pt Own*8 PO DAILY [facility] Levothyroxine Sodium 88 mcg 06/28/20 08:00 Levothyroxine 88 Mcg Tab PO DAILY JAMIA Levothyroxine Sodium 100 mcg 06/28/20 08:00 Levothyroxine 100 Mcg Tab PO DAILY [facility] Losartan Potassium 100 mg 06/28/20 08:00 Losartan 100 Mg Tab PO DAILY JAMIA Non-Formulary Medication 5 mg 06/28/20 08:00 Amlodipine Besylate [Amlodipine Besylate] PO DAILY JAMIA Pantoprazole Sodium packet 06/27/20 17:22 Take Home: Pantoprazole 40 Mg Tab.Cr, 1 Tab Pack PO DAILY [facility] Sodium Chloride 10 ml 06/27/20 17:22 Sodium Chloride 0.9% 10 Ml Syringe FLUSH ASDIRECTED PRN Keep Vein Open Discontinued Medications Generic Name Dose Route Start Last Admin Trade Name Freq PRN Reason Stop Dose Admin Aspirin 324 mg 06/27/20 13:53 06/27/20 13:35 Aspirin 81 Mg Tab.Chew PO 06/27/20 13:54 324 mg ONETIME ONE Administration Clonidine HCl 0.1 mg 06/27/20 14:24 06/27/20 14:54 Clonidine 0.1 Mg Tab PO 06/27/20 14:25 0.1 mg NOW STA Administration Metoprolol Tartrate 5 mg 06/27/20 13:32 06/27/20 13:48 Metoprolol Tartrate 5 Mg/5 Ml Sdv IVPUSH 06/27/20 13:33 5 mg ONETIME ONE Administration Departure - Departure Time of Disposition: 14:30 Disposition: Refer to Observation Clinical Impression: Atypical chest pain - Discharge Information *PRESCRIPTION DRUG MONITORING PROGRAM REVIEWED*: No *COPY OF PRESCRIPTION DRUG MONITORING REPORT IN PATIENT STEVE: No Sepsis Event Note (ED) - Evaluation Sepsis Screening Result: No Definite Risk - Focused Exam Vital Signs: Vital Signs Temp Pulse Pulse Resp BP BP Pulse Ox 06/27/20 14:18 63 20 160/96 H 96 06/27/20 14:04 61 19 151/83 H 93 L 06/27/20 13:49 63 20 169/99 H 95 06/27/20 13:48 68 169/99 H 06/27/20 13:36 71 20 164/99 H 94 L 06/27/20 13:28 68 20 172/102 H 95 06/27/20 13:22 70 20 211/121 H 97 06/27/20 13:10 96.2 F L 69 20 170/99 H 97 - Problem List & Annotations (1) Atypical chest pain SNOMED Code(s): 039686705 Code(s): R07.89 - OTHER CHEST PAIN Status: Acute Current Visit: Yes - Problem List Review Problem List Initiated/Reviewed/Updated: Yes - My Orders Last 24 Hours: My Active Orders 06/27/20 13:08 Telemetry Monitoring [Cardiac Monitoring] [RC] . DIRECTED Chest 2V [CR] Stat - Assessment/Plan Admission H&P: Please use this note as an admission H&P Last 24 Hours: My Active Orders 06/27/20 13:08 Telemetry Monitoring [Cardiac Monitoring] [RC] . DIRECTED Chest 2V [CR] Stat Plan: Cardiac work up unremarkable. Pain did improve in the ED. Blood pressure was quite elevated but patient admits he didn't take any of his medications today. Patient initially given 5mg of Metoprolol Tartrate IV. Blood pressure slightly improved. Patient's heart rate was in the low 60's and elected to give 0.1mg of Clonidine. Patient will be place in observation over night to rule out cardiac etiology. Troponin to be redrawn at 1800hrs. Will repeat EKG and troponin in am as well.
[2020-06-28] MEDS ORDERED: LEVOTHYROXINE 100 MCG PO SCH (07:00)
[2020-06-28] MEDS ORDERED: LEVOTHYROXINE 88 MCG PO SCH (07:00)
[2020-06-28] MEDS ORDERED: Pantoprazole 40 MG Tab.CR **PT OWN PO SCH (07:30)
[2020-06-28 07:43] LABS: CHLORIDE,CL 101 mEq/L (98-106); SODIUM,NA 140 mEq/L (136-145)
[2020-06-28] MEDS ORDERED: AMLODIPINE BESYLATE 5 MG PO SCH (08:00)
[2020-06-28] MEDS ORDERED: LOSARTAN 100 MG PO SCH (08:00)
[2020-06-28] MEDS ORDERED: Aspirin 81 MG Tab.Chew PO SCH (08:00)
[2020-06-28] MEDS ORDERED: BUPROPION 150 MG PO SCH (08:00)
[2020-06-28] MEDS ORDERED: CHLORTHALIDONE 25 MG PO SCH (08:00)
[2020-06-28] MEDS ORDERED: FUROSEMIDE 40 MG PO SCH (08:00)
[2020-06-28] MEDS ORDERED: Enoxaparin 40 MG/0.4 ML Syringe SUBCUT SCH (08:00)
[2020-06-28 08:15] VITALS: BP 124/72
[2020-06-28 08:17] VITALS: PULSE 66
--- NOTE | 2020-06-28 08:44 | PCM.DCSUM1 ---
Discharge Summary - Hospital Course HPI Initial Comments: Ilia is a 54 yo male who was admitted observation yesterday with atypical chest pain. Patient had midsternal chest pain while at work. Admitted it felt like heart burn but wouldn't go away. Started to get really sweaty and decided to go home. Admits at home symptoms didn't improve so he presented to the ED. Diagnosis: Stroke: No - Discharge Data Discharge Date: 06/28/20 Discharge Disposition: Home, Self-Care 01 Condition: Good - Referral to Home Health Primary Care Physician: Matheus Rose PA-C - Discharge Diagnosis/Problem(s) (1) Atypical chest pain SNOMED Code(s): 066946204 ICD Code: R07.89 - OTHER CHEST PAIN Status: Acute Current Visit: Yes - Patient Instructions Diet: Heart Healthy Diet Activity: As Tolerated Notify Provider of: Increased Pain - Discharge Plan *PRESCRIPTION DRUG MONITORING PROGRAM REVIEWED*: No *COPY OF PRESCRIPTION DRUG MONITORING REPORT IN PATIENT STEVE: No Home Medications: Home Meds Chlorthalidone 25 mg PO DAILY 07/31/16 [History] Losartan [Cozaar] 100 mg PO DAILY 07/31/16 [History] Aspirin 81 mg PO DAILY 09/23/16 [History] EPINEPHrine [Epipen 2-Raymon] 0.3 ml IM ASDIRECTED PRN 06/12/17 [History] Pantoprazole Sodium 40 mg PO DAILY 05/07/18 [History] Testosterone Cypionate 1 ml IM Q14D 05/07/18 [History] amLODIPine Besylate [Amlodipine Besylate] 5 mg PO DAILY 10/15/18 [History] Furosemide 40 mg PO DAILY 05/18/20 [History] Levothyroxine Sodium 88 mcg PO DAILY 05/18/20 [History] Levothyroxine Sodium [Synthroid] 100 mcg PO DAILY 05/18/20 [History] tadalafiL [Tadalafil] 10 mg PO ASDIRECTED PRN 05/18/20 [History] buPROPion [buPROPion XL] 150 mg PO DAILY 06/27/20 [History] Oxygen Therapy Mode: Room Air Patient Handouts: Nonspecific Chest Pain, Adult, [id number] Forms: ED Department Discharge Referrals: Matheus Rose PA-C [Primary Care Provider] - - Discharge Summary/Plan Comment DC Time >30 min.: No Discharge Summary/Plan Comment: Ilia is doing well this morning. Currently asymptomatic. Will discharge home at this time. Will resume normal activities. Advise if symptoms return to present back to the ED. Cardiac work up negative, repeat troponin this morning unremarkable. - General Info Date of Service: 06/28/20 Subjective Update: Ilia is doing well this morning. Denies any symptoms. States symptoms resolved yesterday afternoon. Feels back to his normal self today. Denies any chest pain, shortness of breath, etc... Functional Status: Reports: Pain Controlled, Tolerating Diet, Ambulating, Urinating. Denies: New Symptoms - Review of Systems General: Reports: No Symptoms HEENT: Reports: No Symptoms Pulmonary: Reports: No Symptoms Cardiovascular: Reports: No Symptoms Gastrointestinal: Reports: No Symptoms Genitourinary: Reports: No Symptoms Musculoskeletal: Reports: No Symptoms Skin: Reports: No Symptoms Neurological: Reports: No Symptoms Psychiatric: Reports: No Symptoms - Patient Data Vitals - Most Recent: Last Vital Signs Temp 98.4 F 06/28/20 08:00 Pulse 66 06/28/20 08:00 Resp 20 06/28/20 08:00 BP 124/72 06/28/20 08:13 Pulse Ox 95 06/28/20 08:00 Weight - Most Recent: 296 lb Lab Results - Last 24 hrs: Laboratory Results - last 24 hr 06/27/20 06/27/20 06/27/20 Range/Units 13:19 13:19 13:19 WBC 6.6 (5.0-10.0) 10^3/uL RBC 5.35 (4.50-6.00) 10^6/uL Hgb 16.2 (14.0-18.0) g/dL Hct 47.0 (40.0-54.0) % MCV 87.9 (82.0-94.0) fL MCH 30.3 (27.0-32.0) pg MCHC 34.5 (33.0-38.0) g/dL RDW Coeff of David 14.6 (11.0-15.0) % Plt Count 210 (150-400) 10^3/uL Neut % (Auto) 58.2 (35-85) % Lymph % (Auto) 23.9 (10-55) % [place] % (Auto) 15.6 (0-16) % Eos % (Auto) 1.7 (0-5) % Baso % (Auto) 0.6 (0-3) % Neut # (Auto) 3.84 (1.80-7.00) 10^3/uL Lymph # (Auto) 1.58 (1.00-4.80) 10^3/uL [place] # (Auto) 1.03 H (0.00-0.80) 10^3/uL Eos # (Auto) 0.11 (0.00-0.45) 10^3/uL Baso # (Auto) 0.04 10^3/uL PT 11.0 (9.7-12.3) SEC INR 1.01 (0.92-1.18) Sodium 140 (136-145) mEq/L Potassium 3.7 (3.5-5.0) mEq/L Chloride 99 (98-106) mEq/L Carbon Dioxide 32 (21-32) mmol/L BUN 12 (7-18) mg/dL Creatinine 1.3 (0.7-1.3) mg/dL Est Cr Clr Drug Dosing 74.27 mL/min Estimated GFR (MDRD) 58 L (>=60) mL/min Glucose 85 (75-99) mg/dL Calcium 8.9 (8.4-10.1) mg/dL Magnesium 2.0 (1.8-2.4) mg/dL Total Bilirubin 0.3 (0.0-1.0) mg/dL AST 27 (15-37) U/L ALT 61 (12-78) U/L Alkaline Phosphatase 105 (46-116) U/L Lactate Dehydrogenase 149 (100-190) U/L Creatine Kinase 259 H (35-232) U/L Troponin I < 0.017 (0.00-0.06) ng/mL Total Protein 7.2 (6.4-8.2) g/dL Albumin 3.4 (3.4-5.0) g/dL Lipase 177 (73-393) U/L 06/27/20 06/28/20 06/28/20 Range/Units 18:20 07:20 07:20 WBC 5.4 (5.0-10.0) 10^3/uL RBC 5.38 (4.50-6.00) 10^6/uL Hgb 16.0 (14.0-18.0) g/dL Hct 47.4 (40.0-54.0) % MCV 88.1 (82.0-94.0) fL MCH 29.7 (27.0-32.0) pg MCHC 33.8 (33.0-38.0) g/dL RDW Coeff of David 14.8 (11.0-15.0) % Plt Count 217 (150-400) 10^3/uL Neut % (Auto) 62.2 (35-85) % Lymph % (Auto) 22.6 (10-55) % [place] % (Auto) 12.4 (0-16) % Eos % (Auto) 2.4 (0-5) % Baso % (Auto) 0.4 (0-3) % Neut # (Auto) 3.35 (1.80-7.00) 10^3/uL Lymph # (Auto) 1.22 (1.00-4.80) 10^3/uL [place] # (Auto) 0.67 (0.00-0.80) 10^3/uL Eos # (Auto) 0.13 (0.00-0.45) 10^3/uL Baso # (Auto) 0.02 10^3/uL PT (9.7-12.3) SEC INR (0.92-1.18) Sodium 140 (136-145) mEq/L Potassium 4.0 (3.5-5.0) mEq/L Chloride 101 (98-106) mEq/L Carbon Dioxide 30 (21-32) mmol/L BUN 11 (7-18) mg/dL Creatinine 1.1 (0.7-1.3) mg/dL Est Cr Clr Drug Dosing 87.77 mL/min Estimated GFR (MDRD) > 60 (>=60) mL/min Glucose 95 (75-99) mg/dL Calcium 9.1 (8.4-10.1) mg/dL Magnesium (1.8-2.4) mg/dL Total Bilirubin (0.0-1.0) mg/dL AST (15-37) U/L ALT (12-78) U/L Alkaline Phosphatase (46-116) U/L Lactate Dehydrogenase (100-190) U/L Creatine Kinase 212 (35-232) U/L Troponin I < 0.017 < 0.017 (0.00-0.06) ng/mL Total Protein (6.4-8.2) g/dL Albumin (3.4-5.0) g/dL Lipase (73-393) U/L Med Orders - Current: Current Medications Aspirin (Aspirin 81 Mg Tab.Chew) 81 mg PO DAILY [facility] Last Admin: 06/28/20 08:12 Dose: 81 mg Documented by: Bupropion HCl (Bupropion 150 Mg Tab.Er Pt Own) 150 mg PO DAILY [facility] Last Admin: 06/28/20 08:14 Dose: 150 mg Documented by: Chlorthalidone (Chlorthalidone 25 Mg Tab Pt Own) 25 mg PO DAILY [facility] Last Admin: 06/28/20 08:14 Dose: 25 mg Documented by: Enoxaparin Sodium (Enoxaparin 40 Mg/0.4 Ml Syringe) 40 mg SUBCUT DAILY [facility] Last Admin: 06/28/20 08:14 Dose: 40 mg Documented by: Furosemide (Furosemide 40 Mg Tab Pt Own) 40 mg PO DAILY [facility] Last Admin: 06/28/20 08:13 Dose: 40 mg Documented by: Levothyroxine Sodium (Levothyroxine 88 Mcg Tab Pt Own) 88 mcg PO ACBREAKFAST [facility] Last Admin: 06/28/20 06:32 Dose: 88 mcg Documented by: Levothyroxine Sodium (Levothyroxine 100 Mcg Tab Pt Own) 100 mcg PO ACBREAKFAST [facility] Last Admin: 06/28/20 06:32 Dose: 100 mcg Documented by: Losartan Potassium (Losartan 100 Mg Tab Pt Own) 100 mg PO DAILY [facility] Last Admin: 06/28/20 08:13 Dose: 100 mg Documented by: Amlodipine Besylate 5 Mg Tablet Pt Own 0 mg PO DAILY [facility] Last Admin: 06/28/20 08:13 Dose: 5 mg Documented by: Pantoprazole Sodium (Pantoprazole 40 Mg Tab.Cr Pt Own) 40 mg PO DAILY@0730 [facility] Last Admin: 06/28/20 06:33 Dose: 40 mg Documented by: Sodium Chloride (Sodium Chloride 0.9% 10 Ml Syringe) 10 ml FLUSH ASDIRECTED PRN PRN Reason: Keep Vein Open Discontinued Medications Aspirin (Aspirin 81 Mg Tab.Chew) 324 mg PO ONETIME ONE Stop: 06/27/20 13:54 Last Admin: 06/27/20 13:35 Dose: 324 mg Documented by: Clonidine HCl (Clonidine 0.1 Mg Tab) 0.1 mg PO NOW STA Stop: 06/27/20 14:25 Last Admin: 06/27/20 14:54 Dose: 0.1 mg Documented by: Metoprolol Tartrate (Metoprolol Tartrate 5 Mg/5 Ml Sdv) 5 mg IVPUSH ONETIME ONE Stop: 06/27/20 13:33 Last Admin: 06/27/20 13:48 Dose: 5 mg Documented by: - Exam General: Reports: Alert, Oriented, Cooperative, No Acute Distress Lungs: Reports: Clear to Auscultation, Normal Respiratory Effort Cardiovascular: Reports: Regular Rate, Regular Rhythm, No Murmurs GI/Abdominal Exam: Normal Bowel Sounds, Soft, No Distention Extremities: Normal Inspection, No Pedal Edema Skin: Reports: Warm, Dry, Intact Psy/Mental Status: Reports: Alert, Normal Affect, Normal Mood #1 Interpretation EKG Date: 06/28/20 Time: 07:21 Rhythm: NSR Comparison: No Change
== END 2020-06-28 09:00 | disposition home or self-care (01) ==
LOC: CC.ED 13:02 → CC.MS 14:32
PROVIDERS: ADMIT Physician Assistant Medical; ATTEND Family Medicine
DX: R07.89 Other chest pain (principal); F17.210 Nicotine dependence, cigarettes, uncomplicated; E78.00 Pure hypercholesterolemia, unspecified; I10 Essential (primary) hypertension; E03.9 Hypothyroidism, unspecified; Z79.899 Other long term (current) drug therapy; Z79.82 Long term (current) use of aspirin; Z79.890 Hormone replacement therapy; Z98.890 Other specified postprocedural states
CPT/HCPCS: 36415; 71046; 80048; 80053; 82550; 83615; 83690; 83735; 84484; 85025; 85610; 93005; 96374; 99285; A9270; J1650; J3490; 96372; G0378

== ENCOUNTER 2021-09-07 10:16 | Emergency (ER) | payer BC ==
[2021-09-07] MEDS ORDERED: Lidocaine 2% Viscous Solution 15 ML UD ONE (10:57)
[2021-09-07 11:08] LABS: CHLORIDE,CL 100 mEq/L (98-106); SODIUM,NA 139 mEq/L (136-145)
[2021-09-07 11:09] LABS: ESTIMATED GFR 80 mL/min (>=60)
[2021-09-07] MEDS ORDERED: Alum Hydrox/Mag Hydrox/Simeth 30 ML, Lidocaine 2% 15 ML PO ONE ×2 (11:18)
[2021-09-07 11:43] VITALS: BP 146/87; PULSE 64
== END 2021-09-07 11:55 | disposition home or self-care (01) ==
LOC: CC.ED 10:16
DX: K21.9 Gastro-esophageal reflux disease without esophagitis (principal); E78.00 Pure hypercholesterolemia, unspecified; I10 Essential (primary) hypertension; E03.9 Hypothyroidism, unspecified; Z91.013 Allergy to seafood; Z91.041 Radiographic dye allergy status; Z79.899 Other long term (current) drug therapy; Z79.82 Long term (current) use of aspirin; Z20.822 Contact with and (suspected) exposure to COVID-19
CPT/HCPCS: 36415; 71046; 80053; 84484; 85025; 85379; 86140; 87635; 93005; 99285; A9270; U0002

== ENCOUNTER → 2021-09-21 | Day surgery (SDC) | payer BC ==
[~2021-09-21] MED LIST changes: +Flumazenil 0.1 MG/ML 10 ML MDV ONE; -fentaNYL 100 MCG/2 ML SDV ONE; +fentaNYL 50 MCG/ML SDV ONE
[2021-09-21 12:49] VITALS: BP 141/85; PULSE 61
== END ==
LOC: CC.SDS 08:03
PROVIDERS: ATTEND Family Medicine
DX: K21.00 Gastro-esophageal reflux disease with esophagitis, without bleeding (principal); K22.70 Barrett's esophagus without dysplasia; F41.9 Anxiety disorder, unspecified; I25.10 Atherosclerotic heart disease of native coronary artery without angina pectoris; E78.5 Hyperlipidemia, unspecified; I10 Essential (primary) hypertension; E03.9 Hypothyroidism, unspecified; E66.9 Obesity, unspecified; Z91.013 Allergy to seafood; E87.6 Hypokalemia; G47.30 Sleep apnea, unspecified; Z79.899 Other long term (current) drug therapy; Z79.890 Hormone replacement therapy; Z79.82 Long term (current) use of aspirin; Z98.890 Other specified postprocedural states; Z87.891 Personal history of nicotine dependence; Z68.38 Body mass index [BMI] 38.0-38.9, adult
CPT/HCPCS: 87081; J2250; J2704; J3010; J7120

== ENCOUNTER 2025-01-11 09:54 | Emergency (ER) | payer BC ==
[2025-01-11 10:49] LABS: BASOPHILS ABSOLUTE AUTO 0.03 10^3/uL (0.00-0.50); BASOPHILS PERCENT AUTO 0.5 % (0-1); EOSINOPHILS ABSOLUTE AUTO 0.15 10^3/uL (0.00-1.50); EOSINOPHILS PERCENT AUTO 2.3 % (0-6); IMMATURE GRAN ABSOLUTE AUTO 0.08 10^3/uL (0.00-0.49); IMMATURE GRAN PERCENT AUTO 1.2 % (0.0-4.9); LYMPHOCYTES ABSOLUTE AUTO 1.15 10^3/uL (0.60-5.00); LYMPHOCYTES PERCENT AUTO 17.5 % (24-44); MONOCYTES ABSOLUTE AUTO 0.78 10^3/uL (0.00-1.50); MONOCYTES PERCENT AUTO 11.8 % (0-10); NEUTROPHILS ABSOLUTE AUTO 4.40 x10^3/uL (1.80-8.00); NEUTROPHILS PERCENT AUTO 66.7 % (41-71); PLATELET COUNT,PLT 282 10^3/uL (150-400); RED BLOOD CELL COUNT 4.93 x10^6/uL (4.50-6.00); WHITE BLOOD CELL COUNT,WBC 6.6 10^3/uL (4.0-11.0)
[2025-01-11 11:09] LABS: ALANINE AMINOTRANSFERASE,ALT 61.0 U/L (12-78); ASPARTATE AMNIOTRANSFERASE,AST 36.0 U/L (15-37); BILIRUBIN TOTAL 0.4 mg/dL (0.0-1.0); BLOOD UREA NITROGEN,BUN 12.0 mg/dL (7-18); CARBON DIOXIDE,CO2 28.0 mmol/L (21-32); CHLORIDE,CL 104.0 mEq/L (98-106); CREATININE 0.9 mg/dL (0.7-1.3); EST CRCL DRUG DOSING (CG) 98.2 mL/min; ESTIMATED GFR 99.0 mL/min (>=60); GLUCOSE RANDOM 101.0 mg/dL (75-99); POTASSIUM,K 4.0 mEq/L (3.5-5.0); PRO B-TYPE NATRIUR PEPT,BNPPRO 42.0 pg/mL (0-1000); PROTEIN TOTAL,TP 6.4 g/dL (6.4-8.2); SODIUM,NA 140.0 mEq/L (136-145)
[2025-01-11 11:21] LABS: D-DIMER QUANTITATIVE 0.35 (0.00-0.50); PTT,PARTIAL THROMBOPLSTIN TIME 25.0 SEC (20.0-30.0)
[2025-01-11 11:22] LABS: APPEARANCE,URINE CLEAR (CLEAR); GLUCOSE,URINE NEGATIVE (NEGATIVE); OCCULT BLOOD,URINE NEGATIVE (NEGATIVE)
[2025-01-11 14:20] VITALS: BP 139/73; PULSE 72
== END 2025-01-11 14:38 | disposition home or self-care (01) ==
LOC: CC.ED 09:54
DX: R60.0 Localized edema (principal); R06.02 Shortness of breath; I10 Essential (primary) hypertension; E78.00 Pure hypercholesterolemia, unspecified; E03.9 Hypothyroidism, unspecified; Z91.013 Allergy to seafood; Z79.899 Other long term (current) drug therapy
CPT/HCPCS: 36415; 71046; 80053; 81003; 83735; 83880; 84484; 85025; 85379; 85730; 93005; 93010; 99284; 99285; A9270-GY